=== PATIENT | female | born 2000 | race African-American/Black ===

== ENCOUNTER 2024-02-05 10:05 | Outpatient (AMB) | payer OTHER, SELFPAY ==
--- NOTE | 2024-02-05 10:11 | MHC.OFFVIS ---
Vital Signs 02/05/24 10:14 Height 5 ft 5 in BP 118/8 L Blood Pressure Location Rt brachial Position Sitting Pulse 52 Pulse Source Pulse Oximeter Pulse Oximetry (%) 99 Oxygen Delivery Method Room Air Intake Visit Reasons: ENP-? Seizure disorder Scaler Packer Required: No Accompanied by: Self / Same As Patient Allergies No Known Allergies Allergy (Verified 02/05/24 10:15) Medication List - Last Reconciled 02/05/24 by CRISTI Lilly No Known Home Meds HPI Comments Details: Right-handed 23-yr-old female presents for neurological evaluation of: possible seizure. Pt reports in Jun 2022, she had a usual day, she slept well the night before. She had eaten breakfast lunch and dinner. She felt fine. Then around 10:30pm, she started to take a bong hit of a mixture of tobacco and marijuana (bought from a dispensary and this was her typical nightly dose and product). Then she felt ringing in her ears, lightheaded like she would pass out, then sat down, her vision became blurry, so then she laid down on the couch. Then she started to feel her hands feel stiff and locked, her whole body was shaking, her mouth was twitching and had mild drooling. She was conscious and felt her mentation was ok, was trying to tell her boyfriend that he was ok but could not get the words out. Her boyfriend timed the episode, she was actively shaking just > 4 min. Afterwards, she had a slight headache and felt tired/fatigued. She did not have intraictal tongue biting or loss of urinary/bowel sphincter control. She did not see medical care for this. She has not had a similar episode since. She does have a h/o faintinst episode was in 2012- was attributed to heat exhaustion. Since, she has passed out at least 50 times- in [id number] had syncope at least 2 times per month. She was treated for anemia, and the syncope subsided to about 1-2 times per year. Her last episode was earlier this month. Her syncopal episodes are stereotypic. She is not sure of what triggers them- she can be sitting, standing, laying in bed. Both ears will start to ring a high-pitched sound, then with each blink her vision will blur and turn black, and her hearing becomes muffled, and then she passes out x's maybe a minute. When she comes to, she vomits. Denies post-ictal fatigue/tiredness. Denies intraictal tongue biting or loss of urinary/bowel sphincter control. Now tries to sit down when she starts to hear the ringing in her ears. Pt is unsure of her gestational development- however suspects her mother may have used drugs while with her, as her mom did not know that she was as she had had a tubal ligation. Her mother had seizures, kidney disease, substance use d/o, mood d/o, bipolar, AIDs- at age 49 d/t complications. Pt reports she had normal early development. She was a good student, AP and honors classes. She graduated from [employer] in psychology. Plans to go back to school to become an RN. Her father is alive. Pt has 2 full brothers and sisters and lots of half-siblings on both sides- none have seizures or syncope as far as she knows. Patient endorses: orthostatic lightheadedness, anxiety/depression/bipolar-type II- not well-managed, needs a new therapist. Started Abilify earlier this year but has not taken her meds recently. And patient denies: spacing out episodes, usual bothersome headaches, migraines, dizziness, h/o head injury, h/o neck injury, chest pain, palpitations, clotting d/o's, SOB, diabetes, sleeps ok- more than the average person. 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 Plans to return to school to become a nurse. Now has only been taking marijuana occasionally- and always from a dispensary. She has not had an MRI or EEG or cardiac work-up. [facility] Social History Alcohol intake: current Physical Exam Vital Signs: Last Vital Signs Pulse 52 02/05/24 10:14 BP 118/8 L 02/05/24 10:14 Pulse Ox 99 02/05/24 10:14 Oxygen Delivery Method Room Air 02/05/24 10:14 Const General: cooperative and no acute distress Orientation/consciousness: patient oriented x3 HEENT Head: Yes normocephalic Resp Effort & Inspection: normal respiratory effort and able to speak in complete sentences Neuro General: patient oriented x3, CN's II-XI intact bilaterally and deep tendon reflexes 2+ bilaterally Cranial nerves: Yes Bilaterally intact EOM present Gait exam (Neuro): Normal gait present Motor exam (neuro): 5/5 motor strength present throughout Coordination: [id number] test normal, [id number] test normal and tandem gait normal Psych Appearance: grossly normal Mental Status: mental status grossly normal Speech and movement: Normal speech and movement present Affect: normal affect Attitude: cooperative Thought process: Normal thought process present Thought content: Normal thought content present Insight: Good insight present (Psych) Assessment & Plan Assessment & Plan (1) Convulsive syncope: Comment: Onset similar to her syncopal episodes, though did not fully lose consciousness but did have muscle tightness and shaking x's 4 min and postictal fatigue/headache. Code(s): R55 - Syncope and collapse Category: Medical (2) Syncope: Comment: ? epileptic etiology, ? cardiogenic etiology. Unlikely fully r/t h/o anemia as episodes have persisted since anemia has been corrected. Unlikely orthostatic hypotension, as episodes have occurred while sitting and laying down. Code(s): R55 - Syncope and collapse Category: Medical (3) Bipolar II disorder: Code(s): F31.81 - Bipolar II disorder Category: Medical (4) Anxiety: Code(s): F41.9 - Anxiety disorder, unspecified Category: Medical (5) Depression: Code(s): F32.A - Depression, unspecified Category: Medical Plan Pt advised to undergo Baseline EEG Pt advised to undergo Brain MRI w/wo to assess for secondary intracranial etiologies of convulsive syncope and syncope in setting of possible gestational substance exposure. Will refer to new psychiatry/psychology service. Pt would benefit from cardiac evaluation of syncopal episodes- will defer to PCP. Pt advised to NOT drive or engage in high risk activities, including climbing ladders, solo tub bathing or swimming, or engaging in any high risk activities for at least 6 months following last syncopal episode and syncopal etiology identified. Pt seen in c/w Dr [place]. Orders: Orders EEG electroencephalogram Today R55 - Syncope and collapse MR head/brain wo/w con Today R55 - Syncope and collapse Referrals Psychiatry Referral F31.81 - Bipolar II disorder, F32.A - Depression, unspecified, F41.9 - Anxiety disorder, unspecified Coding Level of Care Code New Pt Level 4 (64772) Diagnoses Convulsive syncope R55 Syncope R55 Bipolar II disorder F31.81 Anxiety F41.9 Depression F32.A
[2024-02-05 10:14] VITALS: BP 118/8; PULSE 52; O2SAT 99
== END 2024-02-05 11:23 | disposition home or self-care (01) ==
PROVIDERS: PCP Family Medicine; Visit Provider Nurse Practitioner Family
DX: R55 Syncope and collapse (principal); F31.81 Bipolar II disorder; F41.9 Anxiety disorder, unspecified; F32.A Depression, unspecified
CPT/HCPCS: 99204

== ENCOUNTER → 2024-02-05 10:05 | Outpatient (BNVA) | payer OTHER, SELFPAY | PROVIDERS: PCP Family Medicine; Visit Provider Nurse Practitioner Family | DX: F31.81 Bipolar II disorder (principal); F41.9 Anxiety disorder, unspecified; R55 Syncope and collapse | CPT/HCPCS: 99202 ==

== ENCOUNTER 2024-02-29 15:58 | Outpatient (REF) | payer OTHER, SELFPAY ==
--- NOTE | ~2024-02-29 | MR_ITS ---
EXAMINATION: MR BRAIN WITHOUT AND WITH CONTRAST CLINICAL INFORMATION: Syncope. Collapse. COMPARISON: None available. TECHNIQUE: MRI of the brain was obtained using routine sequences without and following the administration of 5 mL of Gadavist intravenous contrast. FINDINGS: No focal restricted diffusion is demonstrated to suggest acute or subacute cerebral ischemia. No evidence of acute or chronic hemorrhagic products on heme-sensitive imaging. Normal parenchymal signal characteristics. The ventricles are normal in morphology and size. No abnormal mass effect. No midline shift. The hippocampi are symmetric in size, contour, and signal intensity. The temporal horns appear symmetric. Normal appearance of the pituitary gland. The cerebellar tonsils are mildly low lying, positioned 0.4 cm below the foramen magnum. The CSF space of the foramen magnum is maintained. Normal arterial and venous vascular flow voids are present. No abnormal contrast enhancement. Normal, homogeneous marrow signal. Mild mucosal thickening of the paranasal sinuses. No signal abnormalities within the mastoids. MR/MR head/brain wo/w con IMPRESSION: 1. No acute intracranial abnormalities. No abnormal intracranial enhancement. 2. Mild cerebellar tonsillar ectopia. 3. No additional MRI abnormalities to explain the patient's symptoms. Electronically signed by: David Landrum DO 04/21/2024 04:52 AM EST
[2024-02-29] MEDS: gadobutroL 7.5 ML VIAL IVPUSH (17:12)
== END 2024-02-29 15:59 | disposition home or self-care (01) ==
LOC: HO.MRI 15:58
PROVIDERS: PCP Family Medicine; Visit Provider Nurse Practitioner Family
DX: R55 Syncope and collapse (principal)
CPT/HCPCS: 70553; A9585

== ENCOUNTER 2024-03-11 08:00 | Outpatient (REF) | payer OTHER, SELFPAY ==
--- NOTE | 2024-03-11 08:03 | EEG_ITS ---
This is a 16-channel EEG with an EKG lead. The patient is reported awake during the tracing. Background EEG rhythm is 16 to 20 hertz, 5 to 20 microvolt posteriorly, and lower amplitude fast anteriorly. Photic stimulation does not produce any significant driving. Hyperventilation is unremarkable. No definite sharp wave spikes or paroxysmal tendencies noted. Frequent PVCs were noted. Photic stimulation and hyperventilation were unremarkable. IMPRESSION: No EEG abnormality was noted, but her cardiac rhythm for her age seemed abnormal and further investigation is needed. MD KILEY Acosta/TERRY / [id number]
--- NOTE | 2024-03-11 09:19 | ECG_ITS ---
Test Reason : syncope Blood Pressure : / mmHG Vent. Rate : 061 BPM Atrial Rate : 061 BPM P-R Int : 176 ms QRS Dur : 080 ms QT Int : 422 ms P-R-T Axes : 068 088 063 degrees QTc Int : 424 ms Sinus rhythm with occasional Premature ventricular complexes Otherwise normal ECG No previous ECGs available Referred By: Mima Alston Electronically Signed By:
== END 2024-03-11 08:01 | disposition home or self-care (01) ==
LOC: HO.NEURO 08:00
PROVIDERS: Visit Provider Nurse Practitioner Family
DX: R55 Syncope and collapse (principal)
CPT/HCPCS: 93005; 95816

== ENCOUNTER 2024-03-16 09:06 | Outpatient (REF) | payer OTHER, SELFPAY ==
[2024-03-16 12:37] LABS: UPreg QC Valid YES; Urine Pregnancy NEGATIVE (NEGATIVE)
[2024-03-16 12:48] LABS: Alanine Aminotransferase 16 U/L (0-31); Albumin Level 4.3 g/dL (3.5-5.0); Alkaline Phosphatase 58 U/L (39-117); Anion Gap 14 (12-20); Aspartate Amino Transferase 22 U/L (5-31); Bilirubin Total 0.6 mg/dL (0.0-1.0); Blood Urea Nitrogen 13 mg/dL (9-16); Calcium 9.5 mg/dL (8.4-10.2); Carbon Dioxide 24 mmol/L (22-29); Chloride 105 mmol/L (96-108); Cholesterol 160 mg/dL (<200); Estimated Glomerular Filt Rate > 60; Glucose Fasting 75 mg/dL (60-99); HDL Cholesterol 73 mg/dL (>40); LDL Cholesterol Calculated 74 mg/dL (<100); Potassium 3.9 mmol/L (3.3-5.1); Sodium 139 mmol/L (135-145); Total Protein 7.6 g/dL (6.5-8.0); Triglycerides 68 mg/dL (<150)
[2024-03-16 13:03] LABS: TSH reflex Free T4 0.51 uIU/mL (0.32-4.0)
== END 2024-03-16 09:07 | disposition home or self-care (01) ==
LOC: HO.LAB 09:06
PROVIDERS: PCP Family Medicine; Visit Provider Clinical Nurse Specialist Psychiatric/Mental Health
DX: F32.A Depression, unspecified (principal); R55 Syncope and collapse; F41.9 Anxiety disorder, unspecified; F31.81 Bipolar II disorder; Z79.899 Other long term (current) drug therapy
CPT/HCPCS: 36415; 80053; 80061; 81025; 84443; 90792

== ENCOUNTER 2024-03-16 09:06 | Outpatient (AMB) | payer OTHER, SELFPAY ==
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
== END 2024-03-16 10:12 | disposition home or self-care (01) ==
LOC: HO.HOP 09:06
PROVIDERS: PCP Family Medicine; Visit Provider Clinical Nurse Specialist Psychiatric/Mental Health
DX: F31.81 Bipolar II disorder (principal)
CPT/HCPCS: 90792

== ENCOUNTER 2024-05-21 16:25 | Outpatient (AMB) | payer OTHER, SELFPAY ==
--- NOTE | 2024-05-21 16:41 | A.OFFPSYCH_ITS ---
Intake Intake Visit Reasons: depression Resource Paraprofessional Required: No Allergies No Known Allergies Allergy (Verified 02/05/24 10:15) Medication List - Last Reconciled 05/21/24 by Amelia Milotn APRN fluoxetine (Prozac) 10 mg PO DAILY hydroxyzine HCl 10 mg PO BID PRN HPI- Psychiatric Chief Complaint: depression HPI Narrative: Pts PHQ9 did not match description of pts symptoms and functioning; she is struggling with labile mood; easily tearful; recent admission to respite due to urges to hurts self; she has called crisis 2 times in interim. She was started on topomax at respite and they stopped her abilify but left her on prozac 10mg and hydroxyzine. she thiks the abilify miht have been causing palpitations; pt started using THC again and her mood is more labile since. she denies current SI or Hi Past Psychiatric History: no IPLOC, no PHPP, one ED 24 hold when in college. Has outpatient therapy off and on since age 10 Subjective Subjective Subjective Medication Compliance: Yes Side effects from medications: No Review of Systems Medical Review of Systems: unchanged Mental Status Exam Mental Status Exam Patient Appearance: Well Grooomed Patient Orientation: Person, Place, Time and Situation Level of Consciousness: Awake, Appropriate and Alert Patient Behavior: Appropriate and Cooperative Mood Description: Labile Affect Description: Labile Patient Cognition Impaired: No Ability to Follow Directions: Good Speech Pattern: Clear and Appropriate Memory Description: Intact Hallucinations: None Delusions: Not Present Thought Process: Intact and Distracted Thought Content: positive for Loose Associations Judgement: Fair Assessment and Plan Assessment & Plan (1) Bipolar II disorder: Status: Acute Code(s): F31.81 - Bipolar II disorder (2) Anxiety: Status: Acute Code(s): F41.9 - Anxiety disorder, unspecified Plan continue prozac 10 mg daily increase topamax 25 mg TID urged to make OBGYN appt for control method-currently sexually active and not using birthcontrol; advised against this due to medications follow up in 2-4 weeks Medications: New topiramate (Topamax) 25 mg PO TID 90 tabs 1RF Counseling and coordination of Care Pt. Self Management counseling: Maintenance-social rhythm, Med illness tx ad herence, Mod caffeine/ETOH intake, Sleep hygiene, Behavior activation, General coping skills and Problem solving Medication management counseling: Effectiveness, Side effects, Dosing range, Duration, Drug interaction, Adherence and Other (risks of while on meds) Details-Med Mgmt counseling: advised to talk with PCP and BGYN re: BC method Diagnosis and Prognosis Counseling: Accuracy of diagnosis, Prognosis over time, Impact of diagnosis on life functions, Impact of family relationship, Pro blematic behaviors secondary to diagnosis and Adequacy of current interventions Details: I spent 45 minutes reviewing the record, seeing the patient and documenting in the medical record. Counseling provided to the patient/caregiver as outlined below. Addressed patient/caregiver concerns regarding current medication regime including effective adherence. Addressed patient/caregiver concerns regarding diagnosis and prognosis including accuracy of diagnosis, prognosis over time, impact of diagnosis. Addressed patient/caregiver concerns regarding impact of recent stressors. 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 pt older brother very violent at times; pt father worked 4 jobs and absent frequently; Substance History: etoh 2 x month; THC daily . no other drugs Trauma History: childhood. DCF involvement, early loss of mother Coding Level of Care Code Est Pt Level 5 (70106) Diagnoses Bipolar II disorder F31.81 Anxiety F41.9
== END 2024-05-21 17:11 | disposition home or self-care (01) ==
LOC: HO.HOP 16:25
PROVIDERS: PCP Family Medicine; Visit Provider Clinical Nurse Specialist Psychiatric/Mental Health
DX: F31.81 Bipolar II disorder (principal); F41.9 Anxiety disorder, unspecified
CPT/HCPCS: 99215

== ENCOUNTER → 2024-05-21 16:25 | Outpatient (BNVA) | payer OTHER, SELFPAY | PROVIDERS: PCP Family Medicine; Visit Provider Clinical Nurse Specialist Psychiatric/Mental Health | DX: F31.81 Bipolar II disorder (principal); F41.9 Anxiety disorder, unspecified | CPT/HCPCS: 99212 ==

== ENCOUNTER 2024-06-03 17:03 | Outpatient (AMB) | payer OTHER, SELFPAY ==
--- NOTE | 2024-06-03 17:07 | A.OFFPSYCH_ITS ---
Intake Intake Visit Reasons: depression Ice Handler Required: No Allergies No Known Allergies Allergy (Verified 02/05/24 10:15) Medication List - Last Reconciled 06/03/24 by Amelia Milton APRN fluoxetine (Prozac) 10 mg PO DAILY hydroxyzine HCl 10 mg PO BID PRN topiramate (Topamax) 25 mg PO TID HPI- Psychiatric Chief Complaint: depression HPI Narrative: pt reports feeling calmer overall; she reports a few episodes of irritability and verabl impulsivity; no self harm ideation; no SI ro he reports intermittent tingling in her hands since increasing the topomax but it has decreased. she is sleeping a little better; she feels tired during the day. She has appt with PCP nexy week and will have blood work done Past Psychiatric History: no IPLOC, no PHPP, one ED 24 hold when in college. Has outpatient therapy off and on since age 10 Subjective Subjective Subjective Medication Compliance: Yes Side effects from medications: No Review of Systems Medical Review of Systems: unchanged Mental Status Exam Mental Status Exam Patient Appearance: Well Grooomed and Appropriate Patient Orientation: Person, Place, Time and Situation Level of Consciousness: Awake, Appropriate and Alert Patient Behavior: Appropriate and Cooperative Mood Description: Cheerful and Anxious Affect Description: Constricted, Cheerful and Anxious Patient Cognition Impaired: No Ability to Follow Directions: Good Speech Pattern: Clear and Rapid Memory Description: Intact Hallucinations: None Delusions: Not Present Thought Process: Distracted Thought Content: positive for Racing, positive for Goal Oriented and positive for Loose Associations Judgement: Fair Assessment and Plan Assessment & Plan (1) Bipolar II disorder: Status: Acute Code(s): F31.81 - Bipolar II disorder (2) Anxiety: Status: Acute Code(s): F41.9 - Anxiety disorder, unspecified Plan stop prozac continue topomax 25 mg tid and hydroxyzine 10 mg BID has cardiology appt fro [facility] labs : recheck TSH, cbc, comp at next appt with pcpp Medications: Refilled hydroxyzine HCl 10 mg PO BID PRN 30 tabs 1RF anxiety, sleep Discontinued fluoxetine (Prozac) Discontinued Reason: Doctor's Order 10 mg PO DAILY 30 caps 1RF Counseling and coordination of Care Pt. Self Management counseling: Mod caffeine/ETOH intake, Nutrition education and improvement, Sleep hygiene and General coping skills Medication management counseling: Effectiveness, Side effects, Dosing range, Duration, Drug interaction and Adherence Diagnosis and Prognosis Counseling: Accuracy of diagnosis, Prognosis over time, Impact of diagnosis on life functions, Impact of family relationship, Problematic behaviors secondary to diagnosis and Adequacy of current interventions Details: I spent 40 minutes reviewing the record, seeing the patient and documenting in the medical record. Counseling provided to the patient/caregiver as outlined below. Addressed patient/caregiver concerns regarding current medication regime including effective adherence. Addressed patient/caregiver concerns regarding diagnosis and prognosis including accuracy of diagnosis, prognosis over time, impact of diagnosis. Addressed patient/caregiver concerns regarding impact of recent stressors. 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 pt older brother very violent at times; pt father worked 4 jobs and absent frequently; Substance History: etoh 2 x month; THC daily . no other drugs Trauma History: childhood. DCF involvement, early loss of mother Coding Level of Care Code Est Pt Level 4 (24061) Diagnoses Bipolar II disorder F31.81 Anxiety F41.9
== END 2024-06-03 17:25 | disposition home or self-care (01) ==
LOC: HO.HOP 17:03
PROVIDERS: PCP Family Medicine; Visit Provider Clinical Nurse Specialist Psychiatric/Mental Health
DX: F31.81 Bipolar II disorder (principal); F41.9 Anxiety disorder, unspecified
CPT/HCPCS: 99214

== ENCOUNTER → 2024-06-03 17:03 | Outpatient (BNVA) | payer OTHER, SELFPAY | PROVIDERS: PCP Family Medicine; Visit Provider Clinical Nurse Specialist Psychiatric/Mental Health | DX: F31.81 Bipolar II disorder (principal); F41.9 Anxiety disorder, unspecified; Z71.89 Other specified counseling | CPT/HCPCS: 99212 ==

== ENCOUNTER 2024-07-02 16:45 | Outpatient (AMB) | payer OTHER, SELFPAY ==
--- NOTE | 2024-07-02 16:50 | A.OFFPSYCH_ITS ---
Intake Intake Visit Reasons: depression Sales Development Manager Required: No Allergies No Known Allergies Allergy (Verified 02/05/24 10:15) Medication List - Last Reconciled 07/02/24 by Amelia Milton APRN hydroxyzine HCl 10 mg PO BID PRN topiramate (Topamax) 25 mg PO TID HPI- Psychiatric Chief Complaint: depression HPI Narrative: pt anxious and hypomanic; spending increased money; cheating on BF when she doesn't really want to ; using THC again; working with her therpaist to address behaviors; pt guilty and anxious. taking meds cocnsistently; no SI or HI; sleeps 6-7 hous when taking topiramate. pt cardiology appt in August Past Psychiatric History: no IPLOC, no PHPP, one ED 24 hold when in college. Has outpatient therapy off and on since age 10 Subjective Subjective Subjective Medication Compliance: Yes Side effects from medications: No Review of Systems Medical Review of Systems: unchanged Mental Status Exam Mental Status Exam Patient Appearance: Well Grooomed and Appropriate Patient Orientation: Person, Place, Time and Situation Level of Consciousness: Awake, Appropriate and Alert Patient Behavior: Appropriate Mood Description: Anxious Affect Description: Anxious Patient Cognition Impaired: No Ability to Follow Directions: Good Speech Pattern: Clear and Excessive Memory Description: Intact Hallucinations: None Delusions: Not Present Thought Process: Racing and Distracted Thought Content: positive for Racing Judgement: Fair Assessment and Plan Assessment & Plan (1) Bipolar II disorder: Status: Acute Code(s): F31.81 - Bipolar II disorder Plan continue topomax and hydroxyzine cur back on thc use continues therapy start risperdal 0.25mg BID follow up with cardiology stay hydrated follow up w ak in 4 weeks Medications: New risperidone 0.25 mg (1/2 x 0.5 mg) PO BID 30 tabs 0RF Refilled topiramate (Topamax) 25 mg PO TID 90 tabs 1RF hydroxyzine HCl 10 mg PO BID PRN 30 tabs 1RF anxiety, sleep Counseling and coordination of Care Pt. Self Management counseling: Maintenance-social rhythm, Mindfulness, Mod caff eine/ETOH intake, Nutrition education and improvement, Sleep hygiene, Substance abuse tx adhere and General coping skills Medication management counseling: Effectiveness, Side effects, Dosing range, Duration, Drug interaction and Adherence Diagnosis and Prognosis Counseling: Accuracy of diagnosis, Prognosis over time, Impact of diagnosis on life functions, Impact of family relationship, Problematic behaviors secondary to diagnosis and Adequacy of current interventions Details: I spent 36 minutes reviewing the record, seeing the patient and documenting in the medical record. Counseling provided to the patient/caregiver as outlined below. Addressed patient/caregiver concerns regarding current medication regime including effective adherence. Addressed patient/caregiver concerns regarding diagnosis and prognosis including accuracy of diagnosis, prognosis over time, impact of diagnosis. Addressed patient/caregiver concerns regarding impact of recent stressors. 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 pt older br other very violent at times; pt father worked 4 jobs and absent frequently; Substance History: etoh 2 x month; THC daily . no other drugs Trauma History: childhood. DCF involvement, early loss of mother Coding Level of Care Code Est Pt Level 4 (35925) Diagnoses Bipolar II disorder F31.81
== END 2024-07-02 17:00 | disposition home or self-care (01) ==
LOC: HO.HOP 16:45
PROVIDERS: PCP Family Medicine; Visit Provider Clinical Nurse Specialist Psychiatric/Mental Health
DX: F31.81 Bipolar II disorder (principal)
CPT/HCPCS: 99214

== ENCOUNTER → 2024-07-02 16:45 | Outpatient (BNVA) | payer OTHER, SELFPAY | PROVIDERS: PCP Family Medicine; Visit Provider Clinical Nurse Specialist Psychiatric/Mental Health | DX: F31.81 Bipolar II disorder (principal) | CPT/HCPCS: 99212 ==

== ENCOUNTER 2024-08-02 16:36 | Outpatient (AMB) | payer OTHER, SELFPAY ==
--- NOTE | 2024-08-02 16:40 | MHC.OFFVISPS ---
Intake Intake Visit Reasons: f/u consultation Network Communications Engineer Required: No Allergies No Known Allergies Allergy (Verified 02/05/24 10:15) Medication List - Last Reconciled 08/02/24 by Amelia Milton APRN hydroxyzine HCl 10 mg PO BID PRN risperidone 0.25 mg (1/2 x 0.5 mg) PO BID topiramate (Topamax) 25 mg PO TID HPI- Psychiatric Chief Complaint: f/u consultation HPI Narrative: pt reports feeling calmer overall; she is less impulsive. she is sleeping better; reports she is more conistent with medications; she is meeting with therpaist 2 x a week right now as she recently ended a 6.5 yr relationship; she is still living with him and they share a dog so she feels there is still a lot to navigate. pHQ9=8 and GAD7=4. she denies SI or HI, Past Psychiatric History: no IPLOC, no PHPP, one ED 24 hold when in college. Has outpatient therapy off and on since age 10 Subjective Subjective Subjective Medication Compliance: Yes Side effects from medications: No Review of Systems Medical Review of Systems: unchanged Mental Status Exam Mental Status Exam Patient Appearance: Well Grooomed and Appropriate Patient Orientation: Person, Place, Time and Situation Level of Consciousness: Awake, Appropriate and Alert Patient Behavior: Appropriate Mood Description: Sad Affect Description: Sad Patient Cognition Impaired: No Ability to Follow Directions: Good Speech Pattern: Clear and Appropriate Memory Description: Intact Hallucinations: None Delusions: Not Present Thought Process: Intact and Goal Oriented Thought Content: positive for Intact and positive for Goal Oriented Judgement: Fair Assessment and Plan Assessment & Plan (1) Bipolar II disorder: Status: Acute Code(s): F31.81 - Bipolar II disorder (2) Anxiety: Status: Acute Code(s): F41.9 - Anxiety disorder, unspecified Plan continue risperdal continue hydroxyzine prn continue topomax 25mg tid follow up in 4 weeks Medications: Refilled hydroxyzine HCl 10 mg PO BID PRN 120 tabs 1RF anxiety, sleep risperidone 0.25 mg (1/2 x 0.5 mg) PO BID 90 tabs 1RF Counseling and coordination of Care Pt. Self Management counseling: Maintenance-social rhythm, Nutrition education and improvement, Behavior activation, General coping skills and Problem solving Medication management counseling: Effectiveness, Side effects, Dosing range, Duration, Drug interaction and Adherence Diagnosis and Prognosis Counseling: Accuracy of diagnosis, Prognosis over time, Impact of diagnosis on life functions, Impact of family relationship, Problematic behaviors secondary to diagnosis and Adequacy of current interventions Details: I spent 30 minutes reviewing the record, seeing the patient and documenting in the medical record. Counseling provided to the patient/caregiver as outlined below. Addressed patient/caregiver concerns regarding current medication regime including effective adherence. Addressed patient/caregiver concerns regarding diagnosis and prognosis including accuracy of diagnosis, prognosis over time, impact of diagnosis. Addressed patient/caregiver concerns regarding impact of recent stressors. 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 pt older brother very violent at times; pt father worked 4 jobs and absent frequently; Substance History: etoh 2 x month; THC daily . no other drugs Trauma History: childhood. DCF involvement, early loss of mother Coding Level of Care Code Est Pt Level 4 (64641) Diagnoses Bipolar II disorder F31.81 Anxiety F41.9
== END 2024-08-02 17:02 | disposition home or self-care (01) ==
LOC: HO.HOP 16:36
PROVIDERS: PCP Family Medicine; Visit Provider Clinical Nurse Specialist Psychiatric/Mental Health
DX: F31.81 Bipolar II disorder (principal); F41.9 Anxiety disorder, unspecified
CPT/HCPCS: 99214

== ENCOUNTER → 2024-08-02 16:36 | Outpatient (BNVA) | payer OTHER, SELFPAY | PROVIDERS: PCP Family Medicine; Visit Provider Clinical Nurse Specialist Psychiatric/Mental Health | DX: F31.81 Bipolar II disorder (principal); F41.9 Anxiety disorder, unspecified; Z71.89 Other specified counseling | CPT/HCPCS: 99212 ==

== ENCOUNTER 2024-08-17 08:59 | Outpatient (AMB) | payer OTHER, SELFPAY ==
[2024-08-17 09:02] VITALS: BP 96/52; PULSE 71; BMI 20.9
--- NOTE | 2024-08-17 09:02 | MHC.OFFVIS ---
Vital Signs 08/17/24 09:02 Height 5 ft 5 in Weight 125 lb 10.616 oz BMI 20.9 BP 96/52 L Blood Pressure Location Lt brachial Position Sitting Pulse 71 Pulse Source Pulse Oximeter Intake Visit Reasons: RIB BENDER/Mima Alston/syncope/ trigeminal PVC;s Shrimp Boat Captain Required: No Accompanied by: Self / Same As Patient Allergies No Known Allergies Allergy (Verified 02/05/24 10:15) Medication List - Last Reconciled 08/17/24 by Jg Geronimo MD hydroxyzine HCl 10 mg PO BID PRN risperidone 0.25 mg (1/2 x 0.5 mg) PO BID topiramate (Topamax) 25 mg PO TID HPI Comments Details: Pamela is here for consultation regarding syncopal episodes. She states that since around 2012 or so, she has had episodes of passing out. This can happen every few months. In 2021, she was smoking marijuana/cigarettes and in that setting, had passed out. She states that these episodes can happen any time in any body position. She can feel sensations of ringing in the ears, double vision and then everything goes black. She has been referred for cardiac evaluation of syncope. Otherwise, no exertional intolerance and she does not have any limitations of physical activity. No previously diagnosed cardiovascular issues. No family history of any cardiomyopathy or sudden cardiac . In a prior EKG, PVCs have been noted. [facility] Family History (Updated 08/17/24 @ 09:05 by Carmelina Woodruff CMA) Maternal Grandmother DM2 (diabetes mellitus, type 2) Mother AIDS Father AIDS Social History (Updated 08/17/24 @ 09:06 by Carmelina Woodruff CMA) Alcohol intake: never Patient Tobacco Use Status: Never used Tobacco Review of Systems Const Denies chills, Denies fatigue, Denies fever(s), Denies weight gain and Denies weight loss Eyes Denies loss of vision ENT Denies dizziness Card Denies chest pain, Denies leg edema, Denies lightheadedness, Denies palpitations, Denies dyspnea on exertion, Denies orthopnea and Denies other Resp Denies cough, Denies dyspnea on exertion and Denies wheezing GI Denies hematochezia and Denies change in stool character Denies urinary frequency and Denies dysuria Musc Denies abnormal gait, Denies muscle weakness, Denies numbness, Denies radiating pain into limb and Denies tingling Skin/Breast Denies nail changes and Denies rash Neuro Denies Abnormal speech present, Denies abnormal gait, Denies dizziness, Denies loss of vision, Denies memory loss, Denies numbness and Denies tingling Psych Denies depression and Denies memory loss Endo Denies fatigue and Denies palpitations Zia/Lymph Denies easy bruising Aller/Immun Denies wheezing Physical Exam Vital Signs: Last Vital Signs Pulse 71 08/17/24 09:02 BP 96/52 L 08/17/24 09:02 BMI result Body Mass Index 20.9 Const General: comfortable and no acute distress Orientation/consciousness: patient oriented x3 HEENT Other: Unremarkable Head: Yes normal to inspection Neck Neck: Yes normal visual inspection Chest Chest palpation & inspection: normal inspection of the chest Resp Auscultation: clear to auscultation bilaterally Cardio Palpation: normal PMI Heart sounds: S1 normal heart sound present, S2 normal heart sound present, no gallops, no murmurs and no rubs GI Palpation (GI): Soft to palpation Back/Spine/Pelvis Other: unremarkable Skin General skin exam: no rashes or lesions noted Neuro General: patient oriented x3 Speech: No Abnormal speech present Extrem General: Yes normal to inspection Psych Mental Status: mental status grossly normal Assessment & Plan Assessment & Plan (1) Syncope: Code(s): R55 - Syncope and collapse Category: Medical (2) PVCs (premature ventricular contractions): Code(s): I49.3 - Ventricular premature depolarization Category: Medical Plan In the prior EKG from February, underlying rhythm is sinus at 63/Min. PVCs noted. Normal CT and corrected QT. In earlier EKGs 2016, sinus rhythm without any PVCs. Overall, syncopal episodes going back more than 10 years, uncertain etiology. PVCs on EKG. Doubt if there is any correlation between the PVCs in the syncopal episodes. This should not be causing syncope unless she has truly sustained VT which is less likely. We will start with an echocardiogram for any cardiac dysfunction. We will start with a 14 day monitor. Further plan based on the findings. May need longer-term monitoring. To be decided. Orders: Orders CA echo transthoracic complete Today I49.3 - Ventricular premature depolarization ECG 14 day holter monitor Today I49.3 - Ventricular premature depolarization Coding Level of Care Code New Pt Level 4 (11166) Diagnoses Syncope R55 PVCs (premature ventricular contractions) I49.3
== END 2024-08-17 09:23 | disposition home or self-care (01) ==
LOC: HO.HCS 08:59
PROVIDERS: PCP Family Medicine; Visit Provider Internal Medicine
DX: R55 Syncope and collapse (principal); I49.3 Ventricular premature depolarization
CPT/HCPCS: 99204

== ENCOUNTER → 2024-08-17 08:59 | Outpatient (BNVA) | payer OTHER, SELFPAY | PROVIDERS: PCP Family Medicine; Visit Provider Internal Medicine | DX: R55 Syncope and collapse (principal); F31.81 Bipolar II disorder; F41.9 Anxiety disorder, unspecified; F32.A Depression, unspecified; I49.3 Ventricular premature depolarization | CPT/HCPCS: 99202; 99212 ==

== ENCOUNTER 2024-08-17 13:12 | Outpatient (AMB) | payer OTHER, SELFPAY ==
--- NOTE | 2024-08-17 13:17 | MHC.OFFVIS ---
Vital Signs 08/17/24 13:18 Height 5 ft 5 in Weight 124 lb BMI 20.6 BP 110/72 Blood Pressure Location Rt brachial Position Sitting Intake Visit Reasons: 6mo F/U Intake Note: Patient following up MRI 02/29/24,EEG 03/11/24 and psych eval 04/04-08/02/24 Allergies No Known Allergies Allergy (Verified 08/17/24 13:19) Medication List - Last Reconciled 08/17/24 by Mima Alston, FIREWALL SECURITY ENGINEER hydroxyzine HCl 10 mg PO BID PRN risperidone 0.25 mg (1/2 x 0.5 mg) PO BID topiramate (Topamax) 25 mg PO TID HPI Comments Details: History of Present Illness The patient is a 24-year-old female presenting for follow-up of convulsive syncope. Initial EEG showed no epileptic activity but indicated frequent PVCs. 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 No episodes of syncope since the last visit. Experienced a recent sensation indicating a potential syncopal episode but did not faint. No headaches or dizziness reported, denying significant neurological symptoms. Recent medication adjustments were initiated by psychiatric follow-up. Had initial cardiac evaluation today, and has been advised to undergo 14-day heart monitor and echocardiogram. 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 Review of Systems - Neurologic: Denies headache, dizziness. - Cardiac: Reports PVCs, denies chest pain. Results - Tests and Diagnostics: - EEG: No epileptic activity observed; frequent PVCs noted. - MRI of the Brain: Mild cerebellar tonsillar ectopia observed, otherwise unremarkable. 02/05/24 Initial HPI: Right-handed 23-yr-old female presents for neurological evaluation of: possible seizure. Pt reports in Jun 2022, she had a usual day, she slept well the night before. She had eaten breakfast lunch and dinner. She felt fine. Then around 10:30pm, she started to take a bong hit of a mixture of tobacco and marijuana (bought from a dispensary and this was her typical nightly dose and product). Then she felt ringing in her ears, lightheaded like she would pass out, then sat down, her vision became blurry, so then she laid down on the couch. Then she started to feel her hands feel stiff and locked, her whole body was shaking, her mouth was twitching and had mild drooling. She was conscious and felt her mentation was ok, was trying to tell her boyfriend that he was ok but could not get the words out. Her boyfriend timed the episode, she was actively shaking just > 4 min. Afterwards, she had a slight headache and felt tired/fatigued. She did not have intraictal tongue biting or loss of urinary/bowel sphincter control. She did not see medical care for this. She has not had a similar episode since. She does have a h/o faintinst episode was in 2012- was attributed to heat exhaustion. Since, she has passed out at least 50 times- in [id number] had syncope at least 2 times per month. She was treated for anemia, and the syncope subsided to about 1-2 times per year. Her last episode was earlier this month. Her syncopal episodes are stereotypic. She is not sure of what triggers them- she can be sitting, standing, laying in bed. Both ears will start to ring a high-pitched sound, then with each blink her vision will blur and turn black, and her hearing becomes muffled, and then she passes out x's maybe a minute. When she comes to, she vomits. Denies post-ictal fatigue/tiredness. Denies intraictal tongue biting or loss of urinary/bowel sphincter control. Now tries to sit down when she starts to hear the ringing in her ears. Pt is unsure of her gestational development- however suspects her mother may have used drugs while with her, as her mom did not know that she was as she had had a tubal ligation. Her mother had seizures, kidney disease, substance use d/o, mood d/o, bipolar, AIDs- at age 49 d/t complications. Pt reports she had normal early development. She was a good student, AP and honors classes. She graduated from [employer] and [employer] in psychology. Plans to go back to school to become an RN. Her father is alive. Pt has 2 full brothers and sisters and lots of half-siblings on both sides- none have seizures or syncope as far as she knows. Patient endorses: orthostatic lightheadedness, anxiety/depression/bipolar-type II- not well-managed, needs a new therapist. Started Abilify earlier this year but has not taken her meds recently. And patient denies: spacing out episodes, usual bothersome headaches, migraines, dizziness, h/o head injury, h/o neck injury, chest pain, palpitations, clotting d/o's, SOB, diabetes, sleeps ok- more than the average person. 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 Plans to return to school to become a nurse. Now has only been taking marijuana occasionally- and always from a dispensary. She has not had an MRI or EEG or cardiac work-up. [facility] Family History (Updated 08/17/24 @ 09:05 by Carmelina Woodruff CMA) Maternal Grandmother DM2 (diabetes mellitus, type 2) Mother AIDS Father AIDS Social History Alcohol intake: never Patient Tobacco Use Status: Never used Tobacco Physical Exam Vital Signs: Last Vital Signs BP 110/72 08/17/24 13:18 BMI result Body Mass Index 20.6 Const General: cooperative and no acute distress Orientation/consciousness: patient oriented x3 HEENT Head: Yes normocephalic Resp Effort & Inspection: normal respiratory effort and able to speak in complete sentences Neuro General: patient oriented x3 and CN's II-XI intact bilaterally Gait exam (Neuro): Normal gait present Psych Appearance: grossly normal Mental Status: mental status grossly normal Speech and movement: Normal speech and movement present Affect: normal affect Attitude: cooperative Results Reviewed Results Reviewed: 02/29/2024, MR/MR head/brain wo/w con IMPRESSION: 1. No acute intracranial abnormalities. No abnormal intracranial enhancement. 2. Mild cerebellar tonsillar ectopia. 3. No additional MRI abnormalities to explain the patient's symptoms. 03/11/2024, baseline EEG: This is a 16-channel EEG with an EKG lead. The patient is reported awake during the tracing. Background EEG rhythm is 16 to 20 hertz, 5 to 20 microvolt posteriorly, and lower amplitude fast anteriorly. Photic stimulation does not produce any significant driving. Hyperventilation is unremarkable. No definite sharp wave spikes or paroxysmal tendencies noted. Frequent PVCs were noted. Photic stimulation and hyperventilation were unremarkable. IMPRESSION: No EEG abnormality was noted, but her cardiac rhythm for her age seemed abnormal and further investigation is needed. Assessment & Plan Assessment & Plan (1) Convulsive syncope: Comment: Onset similar to her syncopal episodes, though did not fully lose consciousness but did have muscle tightness and shaking x's 4 min and postictal fatigue/headache. Code(s): R55 - Syncope and collapse Category: Medical (2) Syncope: Code(s): R55 - Syncope and collapse Category: Medical (3) Bipolar II disorder: Code(s): F31.81 - Bipolar II disorder Category: Medical (4) Anxiety: Code(s): F41.9 - Anxiety disorder, unspecified Category: Medical (5) Depression: Code(s): F32.A - Depression, unspecified Category: Medical Plan Discussion Notes During the visit, I reviewed the findings from the patient?s recent EEG and MRI. While the EEG ruled out epileptic activity, the frequent premature ventricular contractions brought cardiac evaluation to the forefront. We discussed the implications of the mild cerebellar tonsillar ectopia observed on MRI, clarifying that it is generally asymptomatic and likely an incidental finding. I emphasized the importance of ongoing cardiac evaluation in light of the detected PVCs. I confirmed the 14-day heart monitor order and upcoming echocardiogram, processed per the patient's community health program representative. We discussed the potential orthostatic hypotension effect of psychiatric medications on syncopal episodes. The patient shared significant lifestyle changes, highlighting improved outcomes since switching to daytime work hours. I stressed the importance of longitudinal monitoring of her cardiac status and suggested a follow-up within six months barring any acute concerns, ensuring the patient continues to have adequate psychiatric support. We acknowledged significant improvement in her psychiatric care and daily routine management; however, further cardiovascular investigation is rodriguez. Plan Cardiology follow-up as scheduled with evaluation of cardiac status with a 14-day heart monitor and follow-up echocardiogram. The EEG shows no epileptic basis; frequent PVCs noted. Continue psychiatric oversight for bipolar disorder, with medication reviews to prevent hypotensive effects. MRI finding of mild cerebellar tonsillar ectopia is incidental and asymptomatic. Improved condition observed with a shift from night to day work. Patient was informed and verbally consented to the use of an ambient scribefor clinic note documentation during this visit. Patient Instructions - Follow-up with cardiology and PCP as scheduled - Await scheduling call for echocardiogram and 14 day heart monitor per Cardiology - Continue current psychiatric medications and follow up with the psychiatrist. - Avoid rapid position changes to minimize orthostatic risk. - Report any new symptoms or episodes immediately. - Maintain daytime work schedule for improved sleep and health stability. - Pt advised to NOT drive or engage in high risk activities, including climbing ladders, solo tub bathing or swimming, or engaging in any high risk activities for at least 6 months following last syncopal episode. - Follow-up here in 6 months or sooner as needed Coding Level of Care Code Est Pt Level 4 (24493) Diagnoses Convulsive syncope R55 Syncope R55 Bipolar II disorder F31.81 Anxiety F41.9 Depression F32.A
[2024-08-17 13:18] VITALS: BP 110/72; BMI 20.6
== END 2024-08-17 13:44 | disposition home or self-care (01) ==
LOC: HO.HSMS 13:13
PROVIDERS: PCP Family Medicine; Visit Provider Nurse Practitioner Family
DX: R55 Syncope and collapse (principal); F31.81 Bipolar II disorder; F41.9 Anxiety disorder, unspecified
CPT/HCPCS: 99214

== ENCOUNTER 2024-08-31 16:37 | Outpatient (AMB) | payer OTHER, SELFPAY ==
--- NOTE | 2024-08-31 16:53 | A.OFFPSYCH_ITS ---
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 pt reports she will be working on DBT skills with her therapist and Has a pending cardiac work up with planned holter monitor due to frequent PVCs. We discussed not making any changes to her meds until cardiac work up done; discussed PHP as an option for more support if she feels the need or continue to have self harm urges or behaviors. Pts PHQ9=3 and Her GAD7= 7. Past Psychiatric History: no IPLOC, no PHPP, one ED 24 hold when in college. Has outpatient therapy off and on since age 10 Subjective Subjective Subjective Medication Compliance: Yes Side effects from medications: No Review of Systems Medical Review of Systems: unchanged Mental Status Exam Mental Status Exam Patient Appearance: Well Grooomed and Appropriate Patient Orientation: Person, Place, Time and Situation Level of Consciousness: Awake and Appropriate Patient Behavior: Appropriate and Cooperative Mood Description: Anxious and Sad Affect Description: Anxious and Sad Patient Cognition Impaired: No Ability to Follow Directions: Good Speech Pattern: Clear Memory Description: Intact Hallucinations: None Delusions: Not Present Thought Process: Intact and Goal Oriented Thought Content: positive for Intact and positive for Goal Oriented Judgement: Good Assessment and Plan Assessment & Plan (1) Bipolar II disorder: Status: Acute Code(s): F31.81 - Bipolar II disorder (2) Anxiety: Status: Acute Code(s): F41.9 - Anxiety disorder, unspecified Plan continue meds per below consider PHP return for follow up in 4 weeks Medications: Refilled topiramate (Topamax) 25 mg PO TID 90 tabs 1RF hydroxyzine HCl 10 mg PO BID PRN 120 tabs 1RF anxiety, sleep risperidone 0.25 mg (1/2 x 0.5 mg) PO BID 90 tabs 1RF Counseling and coordination of Care Pt. Self Management counseling: Exercise, Maintenance-social rhythm, Mindfulness, Mod caffeine/ETOH intake, Nutrition education and improvement, Sleep hygiene, General coping skills and Problem solving Medication management counseling: Effectiveness, Side effects, Dosing range, Duration, Drug interaction and Adherence Diagnosis and Prognosis Counseling: Accuracy of diagnosis, Prognosis over time, Impact of diagnosis on life functions, Impact of family relationship, Problematic behaviors secondary to diagnosis and Adequacy of current interventions Details: I spent 40 minutes reviewing the record, seeing the patient and documenting in the medical record. Counseling provided to the patient/caregiver as outlined below. Addressed patient/caregiver concerns regarding current medication regime including effective adherence. Addressed patient/caregiver concerns regarding diagnosis and prognosis including accuracy of diagnosis, prognosis over time, impact of diagnosis. Addressed patient/caregiver concerns regarding impact of recent stressors. 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 pt older brother very violent at times; pt father worked 4 jobs and absent frequently; Substance History: etoh 2 x month; THC daily . no other drugs Trauma History: childhood. DCF involvement, early loss of mother Coding Level of Care Code Est Pt Level 4 (67051) Diagnoses Bipolar II disorder F31.81 Anxiety F41.9
== END 2024-08-31 16:46 | disposition home or self-care (01) ==
LOC: HO.HOP 16:37
PROVIDERS: PCP Family Medicine; Visit Provider Clinical Nurse Specialist Psychiatric/Mental Health
DX: F31.81 Bipolar II disorder (principal); F41.9 Anxiety disorder, unspecified
CPT/HCPCS: 99214

== ENCOUNTER → 2024-08-31 16:37 | Outpatient (BNVA) | payer OTHER, SELFPAY | PROVIDERS: PCP Family Medicine; Visit Provider Clinical Nurse Specialist Psychiatric/Mental Health | DX: F31.81 Bipolar II disorder (principal); F41.9 Anxiety disorder, unspecified | CPT/HCPCS: 99212 ==

== ENCOUNTER → 2024-09-14 13:48 | Outpatient (REF) | payer OTHER, SELFPAY | LOC: HO.CARD 13:48 | PROVIDERS: PCP Nurse Practitioner Family; Visit Provider Internal Medicine | DX: I49.3 Ventricular premature depolarization (principal) | CPT/HCPCS: 93246; 93306 ==

== ENCOUNTER → 2024-09-14 13:55 | Outpatient (BNV) | payer OTHER, SELFPAY | PROVIDERS: PCP Nurse Practitioner Family; Visit Provider Internal Medicine | DX: R94.31 Abnormal electrocardiogram [ECG] [EKG] (principal) | CPT/HCPCS: 93306 ==

== ENCOUNTER 2024-09-15 16:40 | Outpatient (REF) | payer OTHER, SELFPAY ==
[2024-09-15 17:41] LABS: HCG Quantitative < 2 mIU/mL
== END 2024-09-15 16:41 | disposition home or self-care (01) ==
LOC: HO.LAB 16:40
PROVIDERS: PCP Family Medicine; Visit Provider Clinical Nurse Specialist Psychiatric/Mental Health
DX: R55 Syncope and collapse (principal); F31.81 Bipolar II disorder; R79.89 Other specified abnormal findings of blood chemistry
CPT/HCPCS: 36415; 84702

== ENCOUNTER 2024-09-30 16:06 | Outpatient (AMB) | payer OTHER, SELFPAY ==
--- NOTE | 2024-09-30 16:08 | A.OFFPSYCH_ITS ---
Intake Intake Visit Reasons: follow up Performance Management Consultant Required: No Allergies No Known Allergies Allergy (Verified 08/17/24 13:19) Medication List - Last Reconciled 09/30/24 by Amelia Milton APRN hydroxyzine HCl 10 mg PO BID PRN topiramate (Topamax) 25 mg PO TID HPI- Psychiatric Chief Complaint: follow up HPI Narrative: Pt here for follow up for mood symptoms and anxiety. Pt started her period the day after stopping the risperdal. she also no longer has galactorrhea since stopping. Her test was negative. She is struggling with eating oftenmissing meals all day or eating only a small amount; she feels nauseous or anxious when she tries to eat. she is able to name 3 safe food: mashed potatoes, chandan noodle soup, and watermelon. She is isalso open minded about trying ensure. She has struggled with eating since 2018. She would like to gain weight and is not agraid of gaining weight; She is having emotional reactions to interactions with others; in her description it sounds more like PTSD and possible BPD rather than Bipolar Disorder; she has had early loss and neglect in childhood. She si working well with therapist. She is sexually active and hab=ving unprotected sex. she does not want to become ; given the number for tap[facility] and educated about control and safe sex options; she would benefit from consult with OBGYN as well. Past Psychiatric History: no IPLOC, no PHPP, one ED 24 hold when in college. Has outpatient therapy off and on since age 10 Subjective Subjective Subjective Medication Compliance: Yes Side effects from medications: No Review of Systems Medical Review of Systems: unchanged Mental Status Exam Mental Status Exam Patient Appearance: Well Grooomed Patient Orientation: Person, Place, Time and Situation Level of Consciousness: Awake and Appropriate Patient Behavior: Appropriate and Cooperative Mood Description: Sad Affect Description: Sad Patient Cognition Impaired: No Ability to Follow Directions: Good Speech Pattern: Soft-Spoken Memory Description: Intact Hallucinations: None Delusions: Not Present Thought Process: Intact and Goal Oriented Thought Content: positive for Intact and positive for Goal Oriented Judgement: Fair Assessment and Plan Assessment & Plan (1) PTSD (post-traumatic stress disorder): Status: Acute Code(s): F43.10 - Post-traumatic stress disorder, unspecified Plan rule out Borderline PD from trauma and neglect consider remeron 7.5mg daily work on eating 3 small meals a day and supplement with ensure follow up with [facility] for contriol and STD prevention Medications: Refilled topiramate (Topamax) 25 mg PO TID 90 tabs 1RF hydroxyzine HCl 10 mg PO BID PRN 120 tabs 1RF anxiety, sleep Counseling and coordination of Care Pt. Self Management counseling: Maintenance-social rhythm, Med illness tx adherence, Mod caffeine/ETOH intake, Nutrition education and improvement, Sleep hygiene and General coping skills Medication management counseling: Effectiveness, Side effects, Dosing range, Duration, Drug interaction and Adherence Diagnosis and Prognosis Counseling: Accuracy of diagnosis, Prognosis over time, Impact of diagnosis on life functions, Problematic behaviors secondary to diagnosis and Adequacy of current interventions Details: I spent 45 minutes reviewing the record, seeing the patient and documenting in the medical record. Counseling provided to the patient/caregiver as outlined below. Addressed patient/caregiver concerns regarding current medication regime including effective adherence. Addressed patient/caregiver concerns regarding diagnosis and prognosis including accuracy of diagnosis, prognosis over time, impact of diagnosis. Addressed patient/caregiver concerns regarding impact of recent stressors. 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 pt older brother very violent at times; pt father worked 4 jobs and absent frequently; Substance History: etoh 2 x month; THC daily . no other drugs Trauma History: childhood. DCF involvement, early loss of mother Coding Level of Care Code Est Pt Level 5 (72886) Diagnoses PTSD (post-traumatic stress disorder) F43.10
== END 2024-09-30 16:49 | disposition home or self-care (01) ==
LOC: HO.HOP 16:06
PROVIDERS: PCP Family Medicine; Visit Provider Clinical Nurse Specialist Psychiatric/Mental Health
DX: F43.10 Post-traumatic stress disorder, unspecified (principal)
CPT/HCPCS: 99215

== ENCOUNTER → 2024-09-30 16:06 | Outpatient (BNVA) | payer OTHER, SELFPAY | PROVIDERS: PCP Family Medicine; Visit Provider Clinical Nurse Specialist Psychiatric/Mental Health | DX: F43.10 Post-traumatic stress disorder, unspecified (principal); Z71.89 Other specified counseling | CPT/HCPCS: 99212 ==

== ENCOUNTER 2024-11-11 16:57 | Outpatient (AMB) | payer OTHER, SELFPAY ==
--- NOTE | 2024-11-11 16:58 | A.OFFPSYCH_ITS ---
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 She is eating better; she gained 4 pounds since last visit; she moved to a new apartment that is saving her money. She is having emotional reactions to interactions with others; it continues to sound as if theses emotional reactions are more like PTSD and possible BPD rather than Bipolar Disorder; she has had early loss and neglect in childhood. She julian working well with therapist. Pt has not had FIRST AID INSTRUCTOR consult yet but we discussed again today and she will follow up. She reports some road rage experiences. Past Psychiatric History: no IPLOC, no PHPP, one ED 24 hold when in college. Has outpatient therapy off and on since age 10 Subjective Subjective Subjective Medication Compliance: No Side effects from medications: No Review of Systems Medical Review of Systems: unchanged Mental Status Exam Mental Status Exam Patient Appearance: Well Grooomed Patient Orientation: Person, Place, Time and Situation Level of Consciousness: Awake and Appropriate Patient Behavior: Appropriate and Cooperative Mood Description: Happy, Anxious and Sad Affect Description: Happy, Anxious and Sad Patient Cognition Impaired: No Ability to Follow Directions: Good Speech Pattern: Soft-Spoken Memory Description: Intact Hallucinations: None Delusions: Not Present Thought Process: Intact and Goal Oriented Thought Content: positive for Intact and positive for Goal Oriented Judgement: Fair Assessment and Plan Assessment & Plan (1) PTSD (post-traumatic stress disorder): Status: Acute Code(s): F43.10 - Post-traumatic stress disorder, unspecified Plan rule out PTSD and Borderline PD from trauma and neglect consider remeron 7.5mg daily continue to work on eating 3 small meals a day and supplement with ensure follow up with tapestry or FIRST AID INSTRUCTOR referral from PCP for contriol and STD prevention Counseling and coordination of Care Pt. Self Management counseling: Maintenance-social rhythm, Med illness tx adherence, Mod caffeine/ETOH intake, Nutrition education and improvement, Sleep hygiene and General coping skills Medication management counseling: Effectiveness, Side effects, Dosing range, Duration, Drug interaction and Adherence Diagnosis and Prognosis Counseling: Accuracy of diagnosis, Prognosis over time, Impact of diagnosis on life functions, Problematic behaviors secondary to diagnosis and Adequacy of current interventions Details: I spent 35 minutes reviewing the record, seeing the patient and documenting in the medical record. Counseling provided to the patient/caregiver as outlined below. Addressed patient/caregiver concerns regarding current medication regime including effective adherence. Addressed patient/caregiver concerns regarding diagnosis and prognosis including accuracy of diagnosis, prognosis over time, impact of diagnosis. Addressed patient/caregiver concerns regarding impact of recent stressors. 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 pt older brother very violent at times; pt father worked 4 jobs and absent frequently; Substance History: etoh 2 x month; THC daily . no other drugs Trauma History: childhood. DCF involvement, early loss of mother Coding Level of Care Code Est Pt Level 4 (22312) Diagnoses PTSD (post-traumatic stress disorder) F43.10
== END 2024-11-11 17:26 | disposition home or self-care (01) ==
LOC: HO.HOP 16:57
PROVIDERS: PCP Family Medicine; Visit Provider Clinical Nurse Specialist Psychiatric/Mental Health
DX: F43.10 Post-traumatic stress disorder, unspecified (principal)
CPT/HCPCS: 99214

== ENCOUNTER → 2024-11-11 16:57 | Outpatient (BNVA) | payer OTHER, SELFPAY | PROVIDERS: PCP Family Medicine; Visit Provider Clinical Nurse Specialist Psychiatric/Mental Health | DX: F43.10 Post-traumatic stress disorder, unspecified (principal); F41.9 Anxiety disorder, unspecified | CPT/HCPCS: 99212 ==

== ENCOUNTER 2024-12-20 16:27 | Outpatient (AMB) | payer OTHER, SELFPAY ==
--- OUTSIDE RECORDS SUMMARY | 2024-12-20 16:30 | XMS_ITS | Patient Health Record ---
Author Organization [facility] Address [address] [place] [id number] Care Team Providers Care Mud Logger Name Role Phone JAE RICHARDSON Unavailable [phone] Allergies No Known Allergies Results Component Value Reference Range Notes Test, Urine Reviewed date:12/14/2024 05:16:14 PM Interpretation:negative Performing Lab: Notes/Report: negative Test, Urine neg Lot # [id number] Exp. Date 07/26/25 HBsAg Screen-[id number] Reviewed date:12/16/2024 08:46:48 AM Interpretation:Negative Performing Lab:[facility] [address], [address], [employer], Phone - [phone], Director - [facility] Notes/Report: Clinical Information:SRC: SOURCE NOT INDICATED HBsAg Screen Negative Negative Hepatitis B Surf Ab Quant-[id number] Reviewed date:12/16/2024 08:48:40 AM Interpretation:Not Immune Performing Lab:[facility], [address], [place], Phone - [phone], Director - [facility] Notes/Report: Clinical Information:SRC: SOURCE NOT INDICATED Hepatitis B Surf Ab Quant <3.5 Immunity>10 mIU /mL Status of Immunity Anti-HBs Level Inconsistent with Immunity 0.0 - 10.0 Consistent with Immunity >10.0 T pallidum Screening [place] -[id number] Reviewed date:12/16/2024 08:46:30 AM Interpretation:Negative Performing Lab:[facility], [address], [address], [place], Phone - [phone], Director - [facility] Notes/Report: Clinical Information:SRC: SOURCE NOT INDICATED T pallidum Antibodies Non Reactive Non Reactive HIV Ab/p24 Ag with Reflex-[id number] Reviewed date:12/16/2024 08:46:40 AM Interpretation:Negative Performing Lab:[facility], [address], [address], [place], Phone - [phone], Director - [facility] Notes/Report: Clinical Information:SRC: SOURCE NOT INDICATED HIV Ab/p24 Ag Screen Non Reactive Non Reactive HIV-1/HIV-2 antibodies and HIV-1 p24 antigen were NOT detected. There is no laboratory evidence of HIV infection. HIV Negative HCV Antibody RFX to Quant PC [id number] Reviewed date:12/16/2024 08:46:58 AM Interpretation:Negative Performing Lab:[facility], [address], [address], [place], Phone - [phone], Director - [facility] Notes/Report: Clinical Information:SRC: SOURCE NOT INDICATED Clinical Information:SRC: SOURCE NOT INDICATED HCV Ab Non Reactive Non Reactive Interpretation: Not infected with HCV unless early or acute infection is suspected (which may be delayed in an immunocompromised individual), or other evidence exists to indicate HCV infection. NuSwab VG+, Alannah 6sp-1800 68 Reviewed date:12/16/2024 04:50:37 PM Interpretation:Abnormal Performing Lab:[facility], [address] [place] [address], Phone - [phone], Director - [facility] Notes/Report: and Drug Administration. by [employer]. It has not been cleared or approved by the Food was BOKU and its performance characteristics determined 806750-Rgwlwac krusei, ILAN 164277-J parapsilosis/tropicalis; 424123-Jnfrpxp lusitaniae, ILAN; Test(s) 971362-Epjnyrq albicans, ILAN; 580110-Qnddsff glabrata, ILAN; and Drug Administration. by [employer]. It has not been cleared or approved by the Food was developed and its performance characteristics determined Megasphaera 1 Clinical Information:SRC: SOURCE NOT INDICATED Atopobium vaginae High - 2 BVAB 2 Low - 0 Megasphaera 1 Low - 0 Calculate total score by adding the 3 individual bacterial vaginosis (BV) marker scores together. Total score is interpreted as follows: Total score 0-1: Indicates the absence of BV. Total score 2: Indeterminate for BV. Additional clinical data should be evaluated to establish a diagnosis. Total score 3-6: Indicates the presence of BV. Alannah albicans, ILAN Negative Negative Alannah glabrata, ILAN Negative Negative C parapsilosis/tropicalis Negative Negative Th is assay does not differentiate C. tropicalis and C. parapsilosis. Alannah lusitaniae, IALN Negative Negative Alannah krusei, ILAN Negative Negative Trich vag by ILAN Negative Negative Chlamydia trachomatis, ILAN Negative Negative Neisseria gonorrhoeae, ILAN Negative Negative Ct/GC ILAN, Pharyngeal-[id number] Reviewed date:12/17/2024 08:31:14 AM Interpretation:Negative Performing Lab:[facility], [address], [address], [place], Phone - [phone], Director - [facility] Notes/Report: Clinical Information:SRC: SOURCE NOT INDICATED C. trachomatis, ILAN, Pharyn Negative Negative N. gonorrhoeae, ILAN, Pharyn Negative Negative Reason For Referral No Information Medications Medication SIG (Take, Route, Fr equency, Duration) Notes Start Date End Date Status Slynd 4 MG 1 tablet Orally Once a day; Duration: 84 days 12/14/2024 Active metroNIDAZOLE 500 MG 1 tablet Orally Twi ce a day, every 12 hours; Duration: 7 days 12/16/2024 Active hydrOXYzine HCl Acti ve Topiramate 75 mg Active Social History Sex Assigned At : Social History Observation Description Sex Assigned At Female Vital Signs Blood pressure diastolic 98 mm Hg 12/14/2024 Height 5'5 in 12/14/2024 Blood pressure systolic 142 mm Hg 12/14/2024 Weight 119.1 lbs 12/14/2024 BMI 19.82 kg/m2 12/14/2024 Encounters Encounter Location Date Provider Diagnosis [address] [place], [place] [id number] 12/14/2024 JAE RICHARDSON Encounter for other general counseling and advice on contraception Z30.09 ; Counseling, unspecified Z71.9 ; Encounter for test, result negative Z32.02 ; Encounter for screening for other infectious and parasitic diseases Z11.8 ; Encounter for screening for infections with a predominantly sexual mode of transmission Z11.3 ; Encounter for initial prescription of contraceptive pills Z30.011 ; Encounter for screening for human immunodeficiency virus [HIV] Z11.4 and Encounter for screening for other viral diseases Z11.59 [facility] [address] [place] [address] [address] [place], [place] [phone] 12/16/2024 JAE RICHARDSON Assessments Encounter Date Diagnosis (ICD Code) Assessment Notes Treatment Notes Treatment Clinical Notes Section Notes 12/14/2024 Encounter for other general counseling and advice on contraception (ICD-10 - Z30.09) Reviewed control options available. Reviewed risk, benefits and side effects of each method. Answered questions and concerns, and used shared decision-making to choose method. Clt prefers to start with OCs and can RTC at later date for nexplanon insertion if wants to switch to LARC. Discussed importance of follow up with cardiology and determine if any CI to control based on final diagnosis and findings. Spent ___ minutes doing the following: Chart Prep Obtaining/revie wing history Performing medically necessary exam Counseling/Coor dination of Care Documenting the visit Educating the patient Ordering medication/test /procedures Communication of test results New Patient: 94808 30 Minutes 12/14/2024 Counseling, unspecified (ICD-10 - Z71.9) Topiramate (Topamax) may reduce the effectiveness of both estrogen-containi ng and progestin-only contraceptives, particularly at daily doses exceeding 200 mg, and may increase the risk of breakthrough bleeding (BTB). At doses of less than or equal to 200 mg/day, limited pharmacokinetic data and real-world observational studies indicate no increased risk of unintended when used with combined oral contraceptives. Spent ___ minutes doing the following: Chart Prep Obtaining/revie wing history Performing medically necessary exam Counseling/Coor dination of Care Documenting the visit Educating the patient Ordering medication/test /procedures Communication of test results New Patient: 38164 30 Minutes 12/14/2024 Encounter for test, result negative (ICD-10 - Z32.02) Spent ___ minutes doing the following: Chart Prep Obtaining/revie wing history Performing medically necessary exam Counseling/Coor dination of Care Documenting the visit Educating the patient Ordering medication/test /procedures Communication of test results New Patient: 35805 30 Minutes 12/14/2024 Encounter for screening for other infectious and parasitic diseases (ICD-10 - Z11.8) Spent ___ minutes doing the following: Chart Prep Obtaining/revie wing history Performing medically necessary exam Counseling/Coor dination of Care Documenting the visit Educating the patient Ordering medication/test /procedures Communication of test results New Patient: 80369 30 Minutes 12/14/2024 Encounter for initial prescription of contraceptive pills (ICD-10 - Z30.011) Reviewed risks, benefits, advantages, disadvantages, side effects, effectiveness, how to take pill, missed pill protocol, ACHES emergency symptoms. Discussed pill does not protect against STIs.Condoms x 7d. Return in 3 months for pill check/annual and PAP Dispensed Slynd x 1 pack in house, lot number [id number], exp 09/2026, remainder of rx sent to pharmacy Spent ___ minutes doing the following: Chart Prep Obtaining/revie wing history Performing medically necessary exam Counseling/Coor dination of Care Documenting the visit Educating the patient Ordering medication/test /procedures Communication of test results New Patient: 30 Minutes 12/14/2024 Encounter for screening for infections with a predominantly sexual mode of transmission (ICD-10 - Z11.3) Reviewed routine screening, safe sex and consistent barrier protection. Aware of window period for testing and testing options. Discussed symptoms that would warrant further evaluation and follow-up care Spent ___ minutes doing the following: Chart Prep Obtaining/revie wing history Performing medically necessary exam Counseling/Coor dination of Care Documenting the visit Educating the patient Ordering medication/test /procedures Communication of test results New Patient: 30 Minutes 12/14/2024 Encounter for screening for human immunodeficiency virus [HIV] (ICD-10 - Z11.4) Spent ___ minutes doing the following: Chart Prep Obtaining/revie wing history Performing medically necessary exam Counseling/Coor dination of Care Documenting the visit Educating the patient Ordering medication/test /procedures Communication of test results New Patient: 30 Minutes 12/14/2024 Encounter for screening for other viral diseases (ICD-10 - Z11.59) Spent ___ minutes doing the following: Chart Prep Obtaining/revie wing history Performing medically necessary exam Counseling/Coor dination of Care Documenting the visit Educating the patient Ordering medication/test /procedures Communication of test results New Patient: 30 Minutes 12/14/2024 Other Encouraged foll ow up with cardiology for further eval. Can get clearance for [facility] if wants to consider option in the future Spent ___ minutes doing the following: Chart Prep Obtaining/revie wing history Performing medically necessary exam Counseling/Coor dination of Care Documenting the visit Educating the patient Ordering medication/test /procedures Communication of test results New Patient: 62347 30 Minutes Plan Of Treatment Next Appt Details Provider Name:JAE RICHARDSON , 03/28/2025 04:30:00 PM, [address] [place] [address], [facility], [place], [place], [phone], Insurance Providers Payer Name Payer Address Payer Phone Subscriber Number Group Number Insured Name Patient Relationship to Insured Coverage Start Date Coverage End Date [facility] [address] [place], [place] [phone] [id number] Pamela Gold Self - patient is the insured Medical (General) History Medical History History ICD Code Bipolar Depression/anxiety Trigeminal PVCs, elevated BP , followed by cardiology, next appt end of December 2024 Seizure x 2021 Hep B, not immune BV
--- OUTSIDE RECORDS SUMMARY | 2024-12-20 16:30 | XMS_ITS | Clinical Summary ---
Author Organization [facility] [address] [facility] Address [address] [place] [address] Phone Care Team Providers Care Volunteer Services Assistant Name Role Phone Marcy Ulrich MD Primary Care Provider Allergies No known active allergies Medications ARIPiprazole (ABILIFY) 2 mg tablet Take 1 tablet (2 mg total) by mouth 1 (one) time each day. Active FLUoxetine (PROzac) 20 mg capsule Take 1 capsule (20 mg total) by mouth 1 (one) time each day. Active hydrOXYzine HCL (ATARAX) 25 mg tablet Take 1 tablet (25 mg total) by mouth 3 (three) times a day if needed. Active Active Problems Problem Noted Date Diagnosed Date Bipolar 2 disorder (CMS/HCC V24, CMS/[facility] V28) PVC (premature ventricular contraction) 06/04/19 Anxiety disorder 04/04/2023 ERASTO (iron deficiency anemia) 04/04/2023 Syncope 04/04/2023 Immunizations Name Administration Dates Next Due DTaP (Infanrix) 6wks to less than 7yo ,10/16/2001,03/18/2001,09/12,1999 DTaP / Hib 12/30/2022 EMlO-GOA-VDF (Pentacel) 2mo to less than 5yo 09/12/2000,1999 HPV 9-valent (Gardisil) 9yo to less than 46yo 09/01/2018 HPV, Quadrivalent 10/27/2014, 4,12/11/2011,12/19 Hepatitis A Pediatric (Havri x; Vaqta) 12mo to less than 19yo 03/06/2017,11/18/2013 Hepatitis B (Ozburqu-V-Lxswt , Recombivax HB-Adult) 19yo and older 06/09/2017,09/18/2000,1999,08/15 IPV Inactivated polio (Ipol) 6wks and older 11/16/2003,03/18/2001,09/12/2000,10/31 Influenza trivalent, 0.5mL, preservative free (Fluarix; FluLaval; Fluzone) ages 6mo and older (Afluria) 3 years and older 04/05/2022,02/21/2021,02/03/2020 MMR, measles mumps and rubel la Live (Priorix; M-M-R II) 12mo and older 06/09/2017,08/30/2004,10/16/2001 Meningococcal MCV4P 10/23/2016,12/19/2010 Pneumococcal Conjugate Vacci ne, 7 Valent 09/18/2000 Tdap Tetanus diptheria acell ular pertussis (Boostrix; Adacel) 7yo and older 03/06/2017,12/09/2012 Varicella live (Varivax) 12m o and older 10/17/2010,11/15/2002 Surgical History Surgery Date Site/Laterality Comments OTHER SURGICAL HISTORY PROCEDURE: DENIES PREVIOUS SURGERY Medical History Medical History Date Comments Anxiety disorder DX:Anxiety diso rder ERASTO (iron deficiency anemia) DX: ERASTO (iron deficiency anemia) Syncope DX:Syncope Bipolar 2 disorder (CMS/HCC V24, CMS/HCC V28) DX:Bipolar 2 disorder (HCC) Family History Medical History Relation Name Comments No Known Problems Brother 1 Alcohol/Drug Father Other: AIDS Father Other cancer Maternal Grandfather Alcohol/Drug Maternal Grandmother Diabetes Maternal Grandmother Alcohol/Drug Mother Other: AIDS Mother Other: Other Paternal Grandfather No Known Problems Paternal Grandmother No Known Problems Sister Relation Name Status Comments Brother 1 Alive Brother 2 Alive Father Alive Maternal Grandfather Alive Maternal Grandmother Alive Mother Paternal Grandfather Paternal Grandmother Sister Alive Social History Tobacco Use Types Packs/Day Years Used Date Smoking Tobacco: Some Days Smokeless Tobacco: Never Alcohol Use Standard Drinks/Week Comments Yes 0 (1 standard drink = 0.6 oz pur e alcohol) Comments Unknown Sex and Gender Information Value Date Recorded Sex Assigned at Not on file Legal Sex Female 3:01 PM EST Gender Identity Not on file Sexual Orientation Not on file Obstetrics History Last Filed Vital Signs Vital Sign Reading Time Taken Comments Blood Pressure 105/58 06/04/2023 11:18 AM EST Pulse 75 06/04/2023 11:18 AM EST Temperature - - Respiratory Rate - - Oxygen Saturation - - Inhaled Oxygen Concentration - - Weight 61.5 kg (135 lb 9.6 oz) 06/04/2023 11:18 AM EST Height 165.1 cm (5' 5 ) 06/04/2023 11:18 AM EST Body Mass Index 22.57 06/04/2023 11:18 AM EST Plan of Treatment Upcoming Encounters Date Type Department Care Team (Late st Contact Info) Description 02/02/2025 3:00 PM EDT Office Visit Adult Medicine - [address] [phone] Shawn Reyes PA [address] [place] [address] Health Maintenance Due Date Last Done Comments Pneumococcal Vaccine: Pediatrics (0 to 5 Years) and At-Risk Patients (6 to 49 Years) (1 of 1 - PPSV23) 08/15/2005 09/18/2000 Cervical Cancer Screening: Pap Smear 09/01/2021 09/01/2018 Social Influencers of Health Screening 06/15/2023 COVID-19 Vaccine ( season) 2024 05/07/2021, 09/21/2020, 08/24/2020 Depression Screening 05/12/2024 Influenza Vaccine (#1) 2025 , 02/21/2021, 02/03/2020 Cholesterol Screening (Lipid Panel) 06/04/2028 06/04/2023 DTaP,Tdap,and Td Vaccines (9 - Td or Tdap) 12/30/2032 12/30/2022, 03/06/2017, 12/09/2012, Additional history exists IPV Vaccines Completed 11/16/2003, 11/2000, 09/12/2000, Additional history exists Varicella Vaccines Completed 10/17/2010, 11/15/2002 Meningococcal ACWY Vaccine Completed 10/23/2016, Hepatitis A Vaccines Completed 03/06/2017, 11/19/19 14 Hepatitis B Vaccines Completed 06/09/2017, 09/18/2000, 1999, Additional history exists MMR Vaccines Completed 06/09/2017, 08/11, 10/16/2001 HPV Vaccines Completed 09/01/2018, 10/10, 07/26/2013, Additional history exists HIB Vaccines Aged Out 12/30/2022, 08/2000, 1999 No longer eligible based on patient's age to complete this topic Gonorrhea/Chlamydia Screening Discontinued 06/04/2023 HIV Screening Completed 06/04/2023 Hepatitis C Screening Completed 06/04/2023 Meningococcal B Vaccine Aged Out No l onger eligible based on patient's age to complete this topic RSV Immunization Patients Under 20 months Aged Out No longer eligible based on patient's age to complete this topic Procedures Procedure Name Priority Date/Time Associated Diagnosis Comments HEPATITIS C SCREENING Routine 06/04/2023 HIV SCREENING Routine 06/04/2023 LIPID PANEL Routine 06/04/2023 GONORRHEA/CHLAMYDIA SCRREENING Routine 06/04/2023 HPV Routine 09/01/2018 from Last 3 Months or Most Recently Relevant to Health Maintenance Results * HIV Screening (06/04/2023) HIV Screening abstracted Historical Provider HEALTH MAINTENANCE Final Result * Hepatitis C Screening (06/04/2023) Hepatitis C Screening abstracted Historical Provider HEALTH MAINTENANCE Final Result * Gonorrhea/Chlamydia Screening (06/04/2023) Gonorrhea/Chla mydia Screening abstracted Historical Provider HEALTH MAINTENANCE Final Result * Lipid panel (06/04/2023) Pathologist [facility] LDL/HDL Ratio 2 0 - 4 Triglycerides 62 0 - 150 mg/dL Cholesterol 184 0 - 200 mg/dL HDL 85 >=40 mg/dL LDL Cholesterol 87 0 - 100 mg/dL Blood Venous blood specimen / Unknown Historical Provider LAB BLOOD ORDERABLES Tina l Result * Cervical Cancer Screening: HPV (09/01/2018) Pathologist [facility] Cervical Cancer Screening: HPV no interpretation , abstracted Historical Provider HEALTH MAINTENANCE Final Result from Last 3 Months or Most Recently Relevant to Health Maintenance Insurance [facility] [employer] PL[employer] Care Teams Volunteer Services Assistant Relationship Specialty Start Date End Date Marcy Ulrich MD [address] [place] [phone] PCP - General 08/29/22
--- NOTE | 2024-12-20 16:45 | A.OFFPSYCH_ITS ---
Intake Intake Visit Reasons: follow up Hand Tire Trimmer Required: No Allergies No Known Allergies Allergy (Verified 08/17/24 13:19) Medication List - Last Reconciled 12/20/24 by Amelia Milton APRN drospirenone (contraceptive) (Slynd) 1 tab PO DAILY hydroxyzine HCl 10 mg PO BID PRN topiramate (Topamax) 25 mg PO TID HPI- Psychiatric Chief Complaint: follow up HPI Narrative: Pt here for follow up for mood symptoms and anxiety. pts mood stable overall; she is working on self care; had appt for STI testing and started BC. will see PCP soon and get a obgyn visit for ongoing care. She is eating better; she is adjusting to new apartment. She is working on boundaries in therapy; she is making good progress. it continues to sound as if theses emotional reactions are more like PTSD and possible BPD rather than Bipolar Disorder; she has had early loss and neglect in childhood. No high risk behaviors. Past Psychiatric History: no IPLOC, no PHPP, one ED 23 hold when in college. Has outpatient therapy off and on since age 10 Subjective Subjective Subjective Medication Compliance: No Side effects from medications: No Review of Systems Medical Review of Systems: unchanged Mental Status Exam Mental Status Exam Patient Appearance: Well Grooomed Patient Orientation: Person, Place, Time and Situation Level of Consciousness: Awake and Appropriate Patient Behavior: Appropriate and Cooperative Mood Description: Happy, Anxious and Sad Affect Description: Happy, Anxious and Sad Patient Cognition Impaired: No Ability to Follow Directions: Good Speech Pattern: Soft-Spoken Memory Description: Intact Hallucinations: None Delusions: Not Present Thought Process: Intact and Goal Oriented Thought Content: positive for Intact and positive for Goal Oriented Judgement: Fair Assessment and Plan Assessment & Plan (1) PTSD (post-traumatic stress disorder): Status: Acute Code(s): F43.10 - Post-traumatic stress disorder, unspecified Plan rule out PTSD and Borderline PD from trauma and neglect consider remeron 7.5mg daily continue to work on eating 3 small meals a day and supplement with ensure Medications: Refilled topiramate (Topamax) 25 mg PO TID 90 tabs 1RF hydroxyzine HCl 10 mg PO BID PRN 120 tabs 1RF anxiety, sleep Counseling and coordination of Care Pt. Self Management counseling: Maintenance-social rhythm, Med illness tx adherence, Mod caffeine/ETOH intake, Nutrition education and improvement, Sleep hygiene and General coping skills Medication management counseling: Effectiveness, Side effects, Dosing range, Duration, Drug interaction and Adherence Diagnosis and Prognosis Counseling: Accuracy of diagnosis, Prognosis over time, Impact of diagnosis on life functions, Problematic behaviors secondary to diagnosis and Adequacy of current interventions Details: I spent 35 minutes reviewing the record, seeing the patient and documenting in the medical record. Counseling provided to the patient/caregiver as outlined below. Addressed patient/caregiver concerns regarding current medication regime including effective adherence. Addressed patient/caregiver concerns regarding diagnosis and prognosis including accuracy of diagnosis, prognosis over time, impact of diagnosis. Addressed patient/caregiver concerns regarding impact of recent stressors. 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 pt older brother very violent at times; pt father worked 4 jobs and absent frequently; Substance History: etoh 2 x month; THC daily . no other drugs Trauma History: childhood. DCF involvement, early loss of mother Coding Level of Care Code Est Pt Level 4 (29646) Diagnoses PTSD (post-traumatic stress disorder) F43.10
== END 2024-12-20 17:04 | disposition home or self-care (01) ==
LOC: HO.HOP 16:27
PROVIDERS: PCP Family Medicine; Visit Provider Clinical Nurse Specialist Psychiatric/Mental Health
DX: F43.10 Post-traumatic stress disorder, unspecified (principal)
CPT/HCPCS: 99214

== ENCOUNTER → 2024-12-20 16:27 | Outpatient (BNVA) | payer OTHER, SELFPAY | PROVIDERS: PCP Family Medicine; Visit Provider Clinical Nurse Specialist Psychiatric/Mental Health | DX: F43.10 Post-traumatic stress disorder, unspecified (principal) | CPT/HCPCS: 99212 ==

== ENCOUNTER 2025-04-05 16:33 | Outpatient (AMB) | payer OTHER, SELFPAY ==
--- OUTSIDE RECORDS SUMMARY | 2025-03-28 11:30 | XMS_ITS ---
Author Organization [facility] Address [address] [place] [address] Care Team Providers Care Louver Mortiser Operator Name Role Phone JAE SALINAS [phone] REASON FOR VISIT Annual Exam/Pill check Social History Sex Assigned At : Social History Observation Description Sex Assigned At Female Encounters Encounter Location Date Provider Diagnosis [facility] [address] [place] [address] [address] [place], [place] [phone] 03/28/2025 JAE SALINAS Plan Of Treatment Next Appt Details Provider Name:KEVIN NYE, 10:45:00 AM, [address] [place] [address], [address], [place], [place], [phone], Progress Notes * Pamela GOLD DDOB: [birth year] (24 yo F)Acc No.[id number]:03/28/2025 Progress Notes Patient: Pamela Pisano Provider: Perla Salinas NP :2000 A ge:24 Y S ex:Female Date:03/28/2025 Address:[address] [place] Subjective: * Chief Complaints: * A nnual Exam/Pill check * Electronic signature of PETE SALINAS NP on 04/05/2025 at 07:34 PM EST Sign off status: Pending * Provider: Perla Salinas NP Date: 05/28/2024 Generated for Printi ng/Faxing/eTransmitting on: 1 06/05/2024 07:34 PM EST
--- OUTSIDE RECORDS SUMMARY | 2025-04-01 11:04 | XMS_ITS ---
Author Organization [facility] Address [address] [place] [address] Care Team Providers Care New Accounts Clerk Name Role Phone KEVIN NYE Unavailable [phone] Allergies No Known Allergies REASON FOR VISIT ext refill Medications Medication SIG (Take, Route, Fr equency, Duration) Notes Start Date End Date Status Slynd 4 MG Tablet 1 tablet Orally Once a day; Duration: 84 days 12/14/2024 Active Social History Sex Assigned At : Social History Observation Description Sex Assigned At Female Encounters Encounter Location Date Provider Diagnosis [facility] [address] [place] [phone] 04/01/2025 KEVIN POPEYE Encounter for initia l prescription of contraceptive pills Z30.011 Assessments Encounter Date Diagnosis (ICD Code) Assessment Notes Treatment Notes Treatment Clinical Notes Section Notes 04/01/2025 Encounter for initial prescription of contraceptive pills (ICD-10 - Z30.011) Plan Of Treatment Medication Medication Name Sig Start Date Stop Date Notes Slynd 4 MG Tablet 1 tablet Orally Once a day; Duration: 84 days 12/14/2024 Next Appt Details Provider Name:KEVIN NYE, 10:45:00 AM, [address] [place] [address], [place], [place], [phone], Progress Notes * Pamela GOLD DDOB: [birth year] (24 yo F)Acc No.[id number]:04/01/2025 Patient: Pamela LAM :2000 A ge:24 Y S ex:Female Address:[address] [place] [address], [place], [address] * Refills Refill Slynd Tablet, 4 MG, Orally, 84 Tablet, 1 tablet, Once a day, 84 days, Refills=0 Subjective: * Chief Complaints: * E xt refill * Allergies: N .K.D.A.yesAllergies Verified. Assessment: * Assessment: 1. E jeannineunter for initial prescription of contraceptive pills - Z30.011 Plan: * Treatment: * true * Date: Generated for Yamil alvarado/Mercedes/Domingosmitting on: 06/05/2024 07:35 PM EST
--- NOTE | 2025-04-05 15:34 | MHC.OFFVISPS ---
Intake Intake Visit Reasons: f/u consultation Mdm Developer Required: No Allergies No Known Allergies Allergy (Verified 08/17/24 13:19) Medication List - Last Reconciled 04/05/25 by Amelia Milton APRN drospirenone (contraceptive) (Slynd) 1 tab PO DAILY hydroxyzine HCl 10 mg PO BID PRN topiramate (Topamax) 25 mg PO TID HPI- Psychiatric Chief Complaint: f/u consultation HPI Narrative: Pt seen via telehealth for follow up for mood symptoms and anxiety. pts reports she stopped taking the topiramate TID and only taking it onec in am. She reports that over past month that her behavior has become more impulsive. She reports she has impulsively initiated sex with people who are not suitable for her. She is drinking more alcohol on weekends. She is making purchases that are not in her budget. She minimizes these to some degree but her therapist urged her to contact this creative writer. She has missed some work due to feeling she couldn't cope and her frustration level was very low; she was afraid she may lose her temper while at work so she has taken more days off. She is eating better. We discussed asking her therapist from [facility] in [facility] to refer her to a med provider through the clinic as I explained to her that I was a contract consultant to her neurologist and her neurologist could not continue to follow her psychiatrically indefinitely. She will ask her therapist to refer her to the clinic's med provider. Past Psychiatric History: no IPLOC, no PHPP, one ED 23 hold when in college. Has outpatient therapy off and on since age 10 Subjective Subjective Medication Compliance: Yes Side effects from medications: No Review of Systems Medical Review of Systems: unchanged Mental Status Exam Mental Status Exam Patient Orientation: Person, Place, Time and Situation Level of Consciousness: Awake, Appropriate and Alert Patient Behavior: Appropriate, Avoidant and Good Eye Contact Mood Description: Constricted Affect Description: Constricted Patient Cognition Impaired: No Ability to Follow Directions: Good Speech Pattern: Clear and Appropriate Memory Description: Intact Hallucinations: None Delusions: Not Present Thought Process: Intact and Goal Oriented Thought Content: positive for [place] Judgement: Fair Telehealth Telehealth Telehealth Platform: [facility] Location of provider rendering services: practice address Location of patient: address on file Patient Identification confirmed using: Name, : Yes Telehealth method: video Patient verbally consented to treatment: Yes Patient verbally consented to billing insurance company: Yes Patient informed of any privacy concerns related to visit: Yes Minutes spent on Phone/Video with Pt.: 26 Assessment and Plan Assessment & Plan (1) PTSD (post-traumatic stress disorder): Status: Acute Code(s): F43.10 - Post-traumatic stress disorder, unspecified Plan rule out PTSD and Borderline PD from trauma and neglect vs Bipolar II Disorder resume topamax 25mg BID x 3 weeks then increase to TID continue to work on eating 3 small meals a day and supplement with ensure return in 6 weeks obtain referral to med provider at clinic therapist works at- [facility] Medications: Refilled hydroxyzine HCl 10 mg PO BID PRN 60 tabs 1RF anxiety, sleep topiramate (Topamax) 25 mg PO TID 90 tabs 1RF Counseling and coordination of Care Pt. Self Management counseling: Maintenance-social rhythm, Med illness tx adherence, Mod caffeine/ETOH intake, Nutrition education and improvement, Sleep hygiene and General coping skills Medication management counseling: Effectiveness, Side effects, Dosing range, Duration, Drug interaction and Adherence Diagnosis and Prognosis Counseling: Accuracy of diagnosis, Prognosis over time, Impact of diagnosis on life functions, Problematic behaviors secondary to diagnosis and Adequacy of current interventions Details: I spent 35 minutes reviewing the record, seeing the patient and documenting in the medical record. Counseling provided to the patient/caregiver as outlined below. Addressed patient/caregiver concerns regarding current medication regime including effective adherence. Addressed patient/caregiver concerns regarding diagnosis and prognosis including accuracy of diagnosis, prognosis over time, impact of diagnosis. Addressed patient/caregiver concerns regarding impact of recent stressors. 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 pt older brother very violent at times; pt father worked 4 jobs and absent frequently; Substance History: etoh 2 x month; THC daily . no other drugs Trauma History: childhood. DCF involvement, early loss of mother Coding Level of Care Code Est Pt Level 4 (32089) Diagnoses PTSD (post-traumatic stress disorder) F43.10
--- OUTSIDE RECORDS SUMMARY | 2025-04-05 19:35 | XMS_ITS | Patient Health Record ---
Author Organization [facility] Address [address] [place] [address] Care Team Providers Care Granite Polisher Machine Name Role Phone JAE RICHARDSON Unavailable [phone] POPEYE KEVIN Unavailable [phone] Allergies No Known Allergies Results Component Value Reference Range Flag Notes T pallidum Screening [place] -[id number] Reviewed date:12/16/2024 08:46:30 AM Interpretation:Negative Performing Lab:[facility], [address], [address], [place], Phone - [phone], [facility] Notes/Report: Clinical Information:SRC: SOURCE NOT INDICATED T pallidum Antibodies Non Reactive Non Reactive Ct/GC ILAN, Pharyngeal-[id number] Reviewed date:12/17/2024 08:31:14 AM Interpretation:Negative Performing Lab:[facility], [address], [address], [place], Phone - [phone], [facility] Notes/Report: Clinical Information:SRC: SOURCE NOT INDICATED C. trachomatis, ILAN, Pharyn Negative Negative N. gonorrhoeae, ILAN, Pharyn Negative Negative NuSwab VG+, Alannah 6sp-1800 68 Reviewed date:12/16/2024 04:50:37 PM Interpretation:Abnormal Performing Lab:[facility], [address] [facility], [place], Phone - [phone], Director - [place]uy Notes/Report: and Drug Administration. by [employer]. It has not been cleared or approved by the Food was developed and its performance characteristics determined 757825-Suxrtpp krusei, ILAN 734408-O parapsilosis/tropicalis; 937585-Mskbnue lusitaniae, ILAN; Test(s) 988499-Pliczeq albicans, ILAN; 531871-Dtjucrd glabrata, ILAN; and Drug Administration. by [employer]. It has not been cleared or approved by the Food was developed and its performance characteristics determined Megasphaera 1 Clinical Information:SRC: SOURCE NOT INDICATED Atopobium vaginae High - 2 A BVAB 2 Low - 0 Megasphaera 1 [...] ILAN Negative Negative C parapsilosis/tropicalis Negative Negative This assay does not differentiate C. tropicalis and C. parapsilosis. Alannah lusitaniae, ILAN Negative Negative Alannah krusei, ILAN Negative Negative Trich vag by ILAN Negative Negative Chlamydia trachomatis, ILAN Negative Negative Neisseria gonorrhoeae, ILAN Negative Negative HCV Antibody RFX to Quant PC [id number] Reviewed date:12/16/2024 08:46:58 AM Interpretation:Negative Performing Lab:[facility], [address], [place], Phone - [phone], Director - [facility] Notes/Report: Clinical Information:SRC: SOURCE NOT INDICATED Clinical Information:SRC: SOURCE NOT INDICATED HCV Ab Non Reactive Non Reactive Interpretation: Not infected with HCV unless early or acute infection is suspected (which may be delayed in an immunocompromised individual), or other evidence exists to indicate HCV infection. HIV Ab/p24 Ag with Reflex-[id number] Reviewed date:12/16/2024 08:46:40 AM Interpretation:Negative Performing Lab:[facility], [address], [address], [place], Phone - [phone], Director - [facility] Notes/Report: Clinical Information:SRC: SOURCE NOT INDICATED HIV Ab/p24 Ag Screen Non Reactive Non Reactive HIV-1/HIV-2 antibodies and HIV-1 p24 antigen were NOT detected. There is no laboratory evidence of HIV infection. HIV Negative Hepatitis B Surf Ab Quant-[id number] Reviewed date:12/16/2024 08:48:40 AM Interpretation:Not Immune Performing Lab:[facility] [place], [address], [address], [place], Phone - [phone], Director - [facility] Notes/Report: Clinical Information:SRC: SOURCE NOT INDICATED Hepatitis B Surf Ab Quant <3.5 Immunity>10 mIU/mL L Status of Immunity Anti-HBs Level Inconsistent with Immunity 0.0 - 10.0 Consistent with Immunity >10.0 HBsAg Screen-[id number] Reviewed date:12/16/2024 08:46:48 AM Interpretation:Negative Performing Lab:[facility] [place], [address], [address], [place], Phone - [phone], Director - [facility] Notes/Report: Clinical Information:SRC: SOURCE NOT INDICATED HBsAg Screen Negative Negative Test, Urine Reviewed date:12/14/2024 05:16:14 PM Interpretation:negative Performing Lab: Notes/Report: negative Test, Urine neg Lot # [id number] Exp. Date 07/26/25 Reason For Referral No Information Medications Medication SIG (Take, Route, Frequency, Duration) Notes Start Date End Date Status metroNIDAZOLE 500 MG Tablet 1 tablet Ora lly Twice a day, every 12 hours; Duration: 7 days 12/16/2024 Active hydrOXYzine HCl Acti ve Slynd 4 MG Tablet 1 tablet Orally Once a day; Duration: 84 days 12/14/2024 Active Topiramate 75 mg Active Social History Sex Assigned At : Social History Observation Description Sex Assigned At Female Social History HIV Risk Assessment Social Info Question Answer Notes Additional Questions Is an HIV Risk Assessment being c onducted? Yes Did you have a blood transfusion prior to 1985? No Do you have an unlicensed body piercing or tattoo? No Human Trafficking: Social Info Question Answer Notes Human Trafficking Experienced: No PrEP for HIV: Social Info Question Answer Notes PrEP for HIV Is the client intere sted in beginning/continuing PrEP for HIV? No Sexual History: Social Info Question Answer Notes Sexual History: Sexual History Reviewed: Partner s, Practices, Protection/Past STIs Currently sexually active? Yes Sexually active with: Men Number of male partners 1 Your sexual activities include: anal intercourse, oral intercourse, vaginal intercourse Do you use condoms? No Number of partners in past 3 months: 2 Number of partners in past year: 2 Does your partner(s) currently have any STIs? No Drugs/Alcohol: Social Info Question Answer Notes Drug/Alcohol Use Do you or have you used drugs? Yes, c urrently By what route are you taking drugs? Please check all that apply: Smoking Which drug(s) do you smoke? Marijuana When did you last use? Do you want to quit drugs? No Do you or have you used alcohol? Yes, currently 3x a motnh Food Access: Social Info Question Answer Notes Food Access The Client's current access to food is Secure Food Access Relationships: Social Info Question Answer Notes Relationships Has the client experienced any of the following: Client has never experienced harmful relationships Housing Social Info Question Answer Notes Housing The client's current living situation is: stable housing Tobacco Use: Social Info Question Answer Notes Tobacco Use: Do you/have you used tobacco? Yes, currently Tobacco with marijuana Tobacco Smoking Status Unknown if ever smoked Vital Signs Blood pressure diastolic 98 mm Hg 12/14/2024 Height 5'5 in 12/14/2024 Blood pressure systolic 142 mm Hg 12/14/2024 Weight 119.1 lbs 12/14/2024 BMI 19.82 kg/m2 12/14/2024 Encounters Encounter Location Date Provider Diagnosis [facility] [address] [place] [phone] 12/14/2024 JAE RICHARDSON Encounter for other general [...] for screening for other viral diseases Z11.59 [facility] [address] [place], [place] [phone] 12/16/2024 JAE RICHARDSON [facility] [address] [place], [place] [phone] 04/01/2025 KEVIN NYE Encounter for initia l prescription of contraceptive [...] /procedures Communication of test results New Patient: 77983 30 Minutes 04/01/2025 Encounter for initial prescription of contraceptive pills (ICD-10 - Z30.011) 12/14/2024 Counseling, unspecified (ICD-10 - Z71.9) Topiramate [...] /procedures Communication of test results New Patient: 46131 30 Minutes 12/14/2024 Encounter for test, result negative (ICD-10 - Z32.02) Spent ___ minutes doing the following: Chart Prep Obtaining/revie wing history Performing medically necessary exam Counseling/Coor dination of Care Documenting the visit Educating the patient Ordering medication/test /procedures Communication of test results New Patient: 69831 30 Minutes 12/14/2024 Encounter for screening for other infectious and parasitic diseases (ICD-10 - Z11.8) Spent ___ minutes doing the following: Chart Prep Obtaining/revie wing history Performing medically necessary exam Counseling/Coor dination of Care Documenting the visit Educating the patient Ordering medication/test /procedures Communication of test results New Patient: 71392 30 Minutes 12/14/2024 Encounter for initial prescription of contraceptive pills (ICD-10 - Z30.011) Reviewed risks, benefits, advantages, disadvantages, side effects, effectiveness, how to take pill, missed pill protocol, ACHES emergency symptoms. Discussed pill does not protect against STIs.Condoms x 7d. Return in 3 months for pill check/annual and PAP Dispensed Slynd x 1 pack in house, lot number [id number], exp 09/2026, remainder of rx sent to [...] /procedures Communication of test results New Patient: 07410 30 Minutes Plan Of Treatment Next Appt Details Provider Name:KEVIN NYE, 10:45:00 AM, [address] [place] [address], [facility] [place], [place], [place], [phone], Insurance Providers Payer Name Payer Address Payer Phone Subscriber Number Group Number Insured Name Patient Relationship to Insured Coverage Start Date Coverage End Date [facility] [address] [place], [place] [phone] [id number] Pamela Gold Self - patient is the insured Medical (General) History Medical History History ICD Code Bipolar Depression/anxiety Trigeminal PVCs, elevated BP , followed by cardiology, next appt end of December 2024 Seizure x 2021 Hep B, not immune BV
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
== END 2025-04-05 16:34 | disposition home or self-care (01) ==
LOC: HO.HOP 16:33
PROVIDERS: PCP Family Medicine; Visit Provider Clinical Nurse Specialist Psychiatric/Mental Health
DX: F43.10 Post-traumatic stress disorder, unspecified (principal)
CPT/HCPCS: 99214

== ENCOUNTER → 2025-04-05 16:33 | Outpatient (BNVA) | payer OTHER, SELFPAY | PROVIDERS: PCP Family Medicine; Visit Provider Clinical Nurse Specialist Psychiatric/Mental Health | DX: F43.10 Post-traumatic stress disorder, unspecified (principal) | CPT/HCPCS: 99212 ==

== ENCOUNTER 2025-04-13 14:55 | Outpatient (AMB) | payer OTHER, SELFPAY ==
--- OUTSIDE RECORDS SUMMARY | 2025-03-28 11:30 | XMS_ITS ---
Author Organization [facility] Address [address] [place] [address] Care Team Providers Care Certified Ophthalmic Assistant Name Role Phone JAE SALINAS [phone] REASON FOR VISIT Annual Exam/Pill check Social History Sex Assigned At : Social History Observation Description Sex Assigned At Female Encounters Encounter Location Date Provider Diagnosis [facility] [address] [place] [address] [address] [place], [place] [phone] 03/28/2025 JAE SALINAS Plan Of Treatment Next Appt Details Provider Name:KEVIN NYE, 10:45:00 AM, [address] [place] [address], [address], [place], [place], [phone], Progress Notes * Pamela GOLD DDOB: [birth year] (24 yo F)Acc No.[id number]:03/28/2025 Progress Notes Patient: Pamela Pisano Provider: Perla Salinas NP :2000 A ge:24 Y S ex:Female Date:03/28/2025 Address:[address] [id number] Subjective: * Chief Complaints: * A nnual Exam/Pill check * Electronic signature of PETE SALINAS NP on 04/13/2025 at 05:49 PM EST Sign off status: Pending * Provider: Perla Salinas NP Date: 05/28/2024 Generated for Printi ng/Faxing/eTransmitting on: 1 06/14/2024 05:49 PM EST
[2025-04-13 15:04] VITALS: BP 110/60; PULSE 64; BMI 20.5
--- NOTE | 2025-04-13 15:04 | MHC.OFFVIS ---
Vital Signs 04/13/25 15:04 Height 5 ft 5 in Weight 123 lb 7.342 oz BMI 20.5 BP 110/60 Blood Pressure Location Lt brachial Position Sitting Pulse 64 Intake Visit Reasons: rs x3 HS pt/ fu holter monitor Intake Note: Follow-up after holter feeling good Award Clerk Required: No Allergies No Known Allergies Allergy (Verified 08/17/24 13:19) HPI Comments Details: This is a 24-year-old female patient coming in for a follow-up visit. Patient was seen in the office previously for syncopal and near syncope episodes since over 10 years ago. In the past, some episodes were triggered with smoking marijuana and cigarettes and some during shower. Patient states that her symptoms, as they are she is going to faint and then she has to sit down and do some deep breathing after which patient feels okay. She also sometimes feels ringing in the ear with these episodes. Patient states that she has not had any syncope episodes in the recent months but has had lightheadedness and dizziness. Patient has undergone a Holter study and an echocardiogram since last visit and is here to review the results with this. Patient notes that she is only drinking about 32 Oz of water a day. Patient is otherwise denying any exertional chest pain, shortness of breath, palpitations, orthopnea, PND, or leg edema. [facility] Medical History Bipolar II disorder Family History Maternal Grandmother DM2 (diabetes mellitus, type 2) Mother AIDS Father AIDS Social History Alcohol intake: never Patient Tobacco Use Status: Never used Tobacco Review of Systems Const Denies chills, Denies fatigue, Denies fever(s), Denies frequent falls, Denies weakness, Denies weight gain and Denies weight loss ENT Denies dizziness Card Denies chest pain, Denies leg edema, Denies lightheadedness, Denies palpitations, Denies dyspnea, Denies dyspnea on exertion, Denies orthopnea and Denies other (loss of consciousness) Resp Denies cough, Denies dyspnea and Denies dyspnea on exertion GI Denies hematochezia and Denies change in stool character Musc Denies abnormal gait, Denies muscle weakness, Denies numbness, Denies radiating pain into limb and Denies tingling Neuro Denies abnormal gait, Denies dizziness, Denies frequent falls, Denies numbness, Denies tingling and Denies weakness Endo Denies fatigue and Denies palpitations Physical Exam Vital Signs: Last Vital Signs Pulse 64 04/13/25 15:04 BP 110/60 04/13/25 15:04 BMI result Body Mass Index 20.5 Const General: cooperative, healthy appearing, comfortable and no acute distress Orientation/consciousness: patient oriented x3 HEENT Head: Yes normal to inspection Neck Neck: Yes normal visual inspection, Yes trachea midline and Yes supple Chest Chest palpation & inspection: normal inspection of the chest Resp Effort & Inspection: normal respiratory effort Auscultation: clear to auscultation bilaterally, no crackles, no rales, no rhonchi and no wheezes Cardio Jugular venous distension: no JVD Palpation: normal PMI Rate: regular rate Rhythm: regular rhythm Heart sounds: S1 normal heart sound present, S2 normal heart sound present, no click, no gallops, no murmurs and no rubs Peripheral pulses: Peripheral pulses 2+ throughout GI Inspection: Yes normal to inspection Palpation (GI): Soft to palpation Auscultation: normal bowel sounds Skin General skin exam: no rashes or lesions noted Neuro General: patient oriented x3 Extrem General: Yes normal to inspection, No no pedal edema and No calf tenderness Psych Appearance: grossly normal Mental Status: mental status grossly normal Speech and movement: Normal speech and movement present Assessment & Plan Assessment & Plan (1) Syncope: Code(s): R55 - Syncope and collapse Category: Medical Plan: 09/14/2024-Holter study showed a baseline normal sinus rhythm with an average heart rate of 74 beats per minute. Patient had reported 2 symptoms of dizziness and presyncopal episode with sinus rhythm. 09/14/2024-echo study showed a normal LV systolic function with the ejection fraction at 66% with no valvular pathology. Currently patient is doing well without any recent syncopal episodes. Given above finding, no further testing indicated at this time. Advised patient on hydrating herself better with a at least 60 oz a day. Advised on regular exercise, orthostatic precautions, and avoiding stimulants. Patient plans on undergoing a wisdom tooth removal and patient can undergo this with a low cardiac risk. Follow up on an as-needed basis. In the interim, patient will call the office with any concerns or change in symptoms. This note was generated using voice recognition software. While every effort has been made to ensure accuracy and proper farm truck driver, there may be occasional errors that could affect the content or meaning of the described symptoms. Coding Level of Care Code Est Pt Level 3 (47528) Complex visit Add On G2211 Diagnoses Syncope R55 Time Spent (min) 28 Comment Time spent in reviewing the chart, test results, assessment, counseling and documentation.
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
--- OUTSIDE RECORDS SUMMARY | 2025-04-13 17:50 | XMS_ITS | Patient Health Record ---
Author Organization [facility] Address [address] [place] [address] Care Team Providers Care Capital Project Engineer Name Role Phone JAE RICHARDSON Unavailable [phone] KEVIN NYE Unavailable [phone] Allergies No Known Allergies Results Component Value Reference Range Flag Notes Ct/GC ILAN, Pharyngeal-[id number] Reviewed date:12/17/2024 08:31:14 AM Interpretation:Negative Performing Lab:[facility], [address], [address], [place], Phone - [phone], Director - [facility] Notes/Report: Clinical Information:SRC: SOURCE NOT INDICATED C. trachomatis, ILAN, Pharyn Negative Negative N. gonorrhoeae, ILAN, Pharyn Negative Negative NuSwab VG+, Alannah [id number]-[id number] 68 Reviewed date:12/16/2024 04:50:37 PM Interpretation:Abnormal Performing Lab:[facility], [address] [facility], [place], Phone - [phone], Director - Duy Notes/Report: and Drug Administration. by [employer]. It has not been cleared or approved by the [employer] and its performance characteristics determined 535690-Boirprl krusei, ILAN 731048-R parapsilosis/tropicalis; 927461-Rvrtalh lusitaniae, ILAN; Test(s) 609760-Nsogbrx albicans, ILAN; 115587-Evfrdch glabrata, ILAN; and Drug Administration. by [employer]. It has not been cleared or approved by the [employer] and its performance characteristics determined Megasphaera 1 [...] Negative HCV Antibody RFX to Quant PC [id number] Reviewed date:12/16/2024 08:46:58 AM Interpretation:Negative Performing Lab:[facility], [address] [place] [address], [address], [place], Phone - [phone], Director - [facility] Notes/Report: Clinical Information:SRC: SOURCE NOT INDICATED Clinical Information:SRC: SOURCE NOT INDICATED HCV Ab Non Reactive Non Reactive Interpretation: Not infected with HCV unless early or acute infection is suspected (which may be delayed in an immunocompromised individual), or other evidence exists to indicate HCV infection. HIV Ab/p24 Ag with Reflex-[id number] Reviewed date:12/16/2024 08:46:40 AM Interpretation:Negative Performing Lab:[facility], [address] [place] [address], [address], [place] [place], Phone - [phone], Director - [facility] Notes/Report: Clinical Information:SRC: SOURCE NOT INDICATED HIV Ab/p24 Ag Screen Non Reactive Non Reactive HIV-1/HIV-2 antibodies and HIV-1 p24 antigen were NOT detected. There is no laboratory evidence of HIV infection. HIV Negative T pallidum Screening Barber -[id number] Reviewed date:12/16/2024 08:46:30 AM Interpretation:Negative Performing Lab:[facility], [address], [address], [place], Phone - [phone], Director - [facility] Notes/Report: Clinical Information:SRC: SOURCE NOT INDICATED T pallidum Antibodies Non Reactive Non Reactive Hepatitis B Surf Ab Quant-00 [id number] Reviewed date:12/16/2024 08:48:40 AM Interpretation:Not Immune Performing Lab:[facility] [place], [address], [address], [address] [place], Phone - [phone], Director - [facility] Notes/Report: Clinical Information:SRC: SOURCE NOT INDICATED Hepatitis B Surf Ab Quant <3.5 Immunity>10 mIU/mL L Status of Immunity Anti-HBs Level Inconsistent with Immunity 0.0 - 10.0 Consistent with Immunity >10.0 HBsAg Screen-[id number] Reviewed date:12/16/2024 08:46:48 AM Interpretation:Negative Performing Lab:[facility] [place], [address], [address], [address] [place], Phone - [phone], Director - [facility] Notes/Report: Clinical Information:SRC: SOURCE NOT INDICATED HBsAg Screen Negative Negative Test, Urine Reviewed date:12/14/2024 05:16:14 PM Interpretation:negative Performing Lab: Notes/Report: negative Test, Urine neg Lot # [id number] Exp. Date 07/26/25 Reason For Referral No [...] 12/14/2024 Encounters Encounter Location Date Provider Diagnosis [facility] [address] [place] [phone] 12/14/2024 JAE RICHARDSON Encounter for other general [...] for screening for other viral diseases Z11.59 [facility] [address] [place], [place] [phone] 12/16/2024 JAE RICHARDSON [facility] [address] [place], [place] [phone] 04/01/2025 KEVIN NYE Encounter for initia l [...] /procedures Communication of test results New Patient: [id number] 30 Minutes 04/01/2025 Encounter for initial prescription [...] /procedures Communication of test results New Patient: 90410 30 Minutes 12/14/2024 Encounter for test, result negative (ICD-10 - Z32.02) Spent ___ minutes doing the following: Chart Prep Obtaining/revie wing history Performing medically necessary exam Counseling/Coor dination of Care Documenting the visit Educating the patient Ordering medication/test /procedures Communication of test results New Patient: 69246 30 Minutes 12/14/2024 Encounter for screening for other infectious and parasitic diseases (ICD-10 - Z11.8) Spent ___ minutes doing the following: Chart Prep Obtaining/revie wing history Performing medically necessary exam Counseling/Coor dination of Care Documenting the visit Educating the patient Ordering medication/test /procedures Communication of test results New Patient: 65415 30 Minutes 12/14/2024 Encounter for initial prescription of contraceptive pills (ICD-10 - Z30.011) Reviewed risks, benefits, advantages, disadvantages, side effects, effectiveness, how to take pill, missed pill protocol, ACHES emergency symptoms. Discussed pill does not protect against STIs.Condoms x 7d. Return in 3 months for pill check/annual and PAP Dispensed Slynd x 1 pack in house, lot number [id number], exp 09/2026, remainder of rx sent to [...] /procedures Communication of test results New Patient: 11089 30 Minutes Plan Of Treatment Next Appt Details Provider Name:KEVIN NYE, 10:45:00 AM, [address] [place] [address], [facility], [place], [place], [phone], Insurance Providers Payer Name Payer Address Payer Phone Subscriber Number Group Number Insured Name Patient Relationship to Insured Coverage Start Date Coverage End Date [facility] [address] [place], [place] [id number] Pamela Gold Self - patient is the insured Medical (General) History Medical History History ICD Code Bipolar Depression/anxiety Trigeminal PVCs, elevated BP , followed by cardiology, next appt end of December 2024 Seizure x 2021 Hep B, not immune BV
== END 2025-04-13 15:24 | disposition home or self-care (01) ==
LOC: HO.HCS 14:56
PROVIDERS: PCP Family Medicine
DX: R55 Syncope and collapse (principal)
CPT/HCPCS: 99213

== ENCOUNTER → 2025-04-13 14:55 | Outpatient (BNVA) | payer OTHER, SELFPAY | PROVIDERS: PCP Family Medicine | DX: R55 Syncope and collapse (principal) | CPT/HCPCS: 99212 ==

== ENCOUNTER 2025-05-09 15:54 | Outpatient (AMB) | payer OTHER, SELFPAY ==
--- OUTSIDE RECORDS SUMMARY | 2025-03-28 11:30 | XMS_ITS ---
Author Organization [facility] Address [address] [place] [address] Care Team Providers Care Distributor Advertising Material Name Role Phone JAE SALINAS [phone] REASON FOR VISIT Annual Exam/Pill check Social History Sex Assigned At : Social History Observation Description Sex Assigned At Female Encounters Encounter Location Date Provider Diagnosis [facility] [address] [place] [address] [address] [address] [place], [place] [phone] 03/28/2025 JAE SALINAS Plan Of Treatment Next Appt Details Provider Name:KEVIN NYE, 10:45:00 AM, [address] [place] [address], [address], [place], [place], [phone], Progress Notes * Pamela GOLD DDOB: [birth year] (24 yo F)Acc No.[id number]:03/28/2025 Progress Notes Patient: Pamela Pisano Provider: Perla Salinas NP :2000 A ge:24 Y S ex:Female Date:03/28/2025 Address:[address] [place] Subjective: * Chief Complaints: * A nnual Exam/Pill check * Electronic signature of PETE SALINAS NP on 05/09/2025 at 05:45 PM EST Sign off status: Pending * Provider: Perla Salinas NP Date: 05/28/2024 Generated for Printi ng/Faxing/eTransmitting on: 1 05:45 PM EST
--- NOTE | 2025-05-09 15:32 | MHC.OFFVISPS ---
Intake Intake Visit Reasons: f/u consultation Job Setter Honing Required: No Allergies No Known Allergies Allergy (Verified 08/17/24 13:19) Medication List - Last Reconciled 05/09/25 by Amelia Milton APRN drospirenone (contraceptive) (Slynd) 1 tab PO DAILY hydroxyzine HCl 10 mg PO BID PRN topiramate (Topamax) 25 mg PO TID HPI- Psychiatric Chief Complaint: f/u consultation HPI Narrative: Pt seen via telehealth for follow up for mood symptoms and anxiety. pts reports she has started back on the topomax and feels less reactive. she reports less impulsivity. Pt reports her mood is more stable. she is less irritable; She is eating better. She did ask her therapist from [facility] in [place] to refer her to a med provider through the clinic and was told it would not be long. Pt denies any dizziness or fainting. She denies etoh use. she denies SI or HI. She denies auditory or visual hallucinations Past Psychiatric History: no IPLOC, no PHPP, one ED 23 hold when in college. Has outpatient therapy off and on since age 10 Subjective Subjective Medication Compliance: Yes Side effects from medications: No Review of Systems Medical Review of Systems: unchanged Mental Status Exam Mental Status Exam Patient Appearance: Well Grooomed and Appropriate Patient Orientation: Person, Place, Time and Situation Level of Consciousness: Awake, Appropriate and Alert Patient Behavior: Appropriate, Cooperative and Good Eye Contact Mood Description: Withdrawn and Constricted Affect Description: Withdrawn and Constricted Patient Cognition Impaired: No Ability to Follow Directions: Good Speech Pattern: Clear and Appropriate Memory Description: Intact Hallucinations: None Delusions: Not Present Thought Process: Intact and Goal Oriented Thought Content: positive for Goal Oriented Judgement: Fair Telehealth Telehealth Telehealth Platform: [place] Location of provider rendering services: practice address Location of patient: address on file Patient Identification confirmed using: Name, : Yes Telehealth method: video Patient verbally consented to treatment: Yes Patient verbally consented to billing insurance company: Yes Patient informed of any privacy concerns related to visit: Yes Minutes spent on Phone/Video with Pt.: 20 Assessment and Plan Assessment & Plan (1) PTSD (post-traumatic stress disorder): Status: Acute Code(s): F43.10 - Post-traumatic stress disorder, unspecified Plan rule out PTSD and Borderline PD from trauma and neglect vs Bipolar II Disorder resume topamax 25mg BID x 3 weeks then increase to TID continue to work on eating 3 small meals a day and supplement with ensure return in 6 weeks follow up with med provider at clinic where therapist works at- [facility] Medications: Refilled topiramate (Topamax) 25 mg PO TID 90 tabs 2RF hydroxyzine HCl 10 mg PO BID PRN 60 tabs 2RF anxiety, sleep Counseling and coordination of Care Pt. Self Management counseling: Maintenance-social rhythm, Med illness tx adherence, Mod caffeine/ETOH intake, Nutrition education and improvement, Sleep hygiene and General coping skills Medication management counseling: Effectiveness, Side effects, Dosing range, Duration, Drug interaction and Adherence Diagnosis and Prognosis Counseling: Accuracy of diagnosis, Prognosis over time, Impact of diagnosis on life functions, Problematic behaviors secondary to diagnosis and Adequacy of current interventions Details: I spent 28 minutes reviewing the record, seeing the patient and documenting in the medical record. Counseling provided to the patient/caregiver as outlined below. Addressed patient/caregiver concerns regarding current medication regime including effective adherence. Addressed patient/caregiver concerns regarding diagnosis and prognosis including accuracy of diagnosis, prognosis over time, impact of diagnosis. Addressed patient/caregiver concerns regarding impact of recent stressors. 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 pt older brother very violent at times; pt father worked 4 jobs and absent frequently; Substance History: etoh 2 x month; THC daily . no other drugs Trauma History: childhood. DCF involvement, early loss of mother Coding Level of Care Code Tele Est Pt Level 4 (79713) Diagnoses PTSD (post-traumatic stress disorder) F43.10
--- OUTSIDE RECORDS SUMMARY | 2025-05-09 17:45 | XMS_ITS | Patient Health Record ---
Author Organization [facility] Address [address] [place] [address] Care Team Providers Care Purification Operator Name Role Phone JAE RICHARDSON Unavailable [phone] POPEYE KEVIN Unavailable [phone] Allergies No Known Allergies Results Component Value Reference Range Flag Notes T pallidum Screening [place] -[id number] Reviewed date:12/16/2024 08:46:30 AM Interpretation:Negative Performing Lab:[facility], [address], [address], [place], Phone - [phone], [facility] Notes/Report: Clinical Information:SRC: SOURCE NOT INDICATED T pallidum Antibodies Non Reactive Non Reactive Ct/GC ILAN, Pharyngeal-[id number] Reviewed date:12/17/2024 08:31:14 AM Interpretation:Negative Performing Lab:[facility], [address], [address], [place], Phone - [phone], [facility] Notes/Report: Clinical Information:SRC: SOURCE NOT INDICATED C. trachomatis, LIAN, Pharyn Negative Negative N. gonorrhoeae, ILAN, Pharyn Negative Negative NuSwab VG+, Alannah [id number]-1800 68 Reviewed date:12/16/2024 04:50:37 PM Interpretation:Abnormal Performing Lab:[facility], [address], [place], Phone - [phone], Director - [facility]uy Notes/Report: and Drug Administration. by [employer]. It has not been cleared or approved by the Food was developed and its performance characteristics determined 655628-Jcoloec krusei, ILAN 869933-U parapsilosis/tropicalis; 191357-Zyspgyv lusitaniae, ILAN; Test(s) 951274-Jikhceh albicans, ILAN; 513438-Genamrz glabrata, ILAN; and Drug Administration. by [employer]. It has not been cleared or approved [...] Negative HCV Antibody RFX to Quant PC [id number] Reviewed date:12/16/2024 08:46:58 AM Interpretation:Negative Performing Lab:[facility], [address], [place], Phone - [phone], Director - [facility] Notes/Report: Clinical Information:SRC: SOURCE NOT INDICATED [...] Performing Lab:[facility], [address], [address], [place], Phone - [phone], Director - [facility] Notes/Report: Clinical Information:SRC: SOURCE NOT INDICATED HIV Ab/p24 Ag Screen Non Reactive Non Reactive HIV-1/HIV-2 antibodies and HIV-1 p24 antigen were NOT detected. There is no laboratory evidence of HIV infection. HIV Negative Hepatitis B Surf Ab Quant-[id number] Reviewed date:12/16/2024 08:48:40 AM Interpretation:Not Immune Performing Lab:[facility] [place], [address], [address], [place], Phone - [phone], Director - [facility] Notes/Report: Clinical Information:SRC: SOURCE NOT INDICATED Hepatitis B Surf Ab Quant <3.5 Immunity>10 mIU/mL L Status of Immunity Anti-HBs Level Inconsistent with Immunity 0.0 - 10.0 Consistent with Immunity >10.0 HBsAg Screen-[id number] Reviewed date:12/16/2024 08:46:48 AM Interpretation:Negative Performing Lab:[facility] [place], [address], [address], [place], Phone - [phone], Director - [facility] Notes/Report: Clinical Information:SRC: SOURCE NOT INDICATED HBsAg Screen Negative Negative Test, Urine Reviewed date:12/14/2024 05:16:14 PM Interpretation:negative Performing Lab: Notes/Report: negative Test, Urine neg Lot # [id number] Exp. Date 07/26/25 Reason For Referral No [...] 12/14/2024 Encounters Encounter Location Date Provider Diagnosis [facility] [address] [place] [phone] 12/14/2024 JAE RICHARDSON Encounter for other general [...] for screening for other viral diseases Z11.59 [facility] [address] [place], [place] [phone] 12/16/2024 JAE RICHARDSON [facility] [address] [place], [place] [phone] 04/01/2025 KEVIN NYE Encounter for initia l [...] /procedures Communication of test results New Patient: 08484 30 Minutes 04/01/2025 Encounter for initial prescription [...] /procedures Communication of test results New Patient: 94350 30 Minutes 12/14/2024 Encounter for test, result negative (ICD-10 - Z32.02) Spent ___ minutes doing the following: Chart Prep Obtaining/revie wing history Performing medically necessary exam Counseling/Coor dination of Care Documenting the visit Educating the patient Ordering medication/test /procedures Communication of test results New Patient: 05161 30 Minutes 12/14/2024 Encounter for screening for other infectious and parasitic diseases (ICD-10 - Z11.8) Spent ___ minutes doing the following: Chart Prep Obtaining/revie wing history Performing medically necessary exam Counseling/Coor dination of Care Documenting the visit Educating the patient Ordering medication/test /procedures Communication of test results New Patient: 39096 30 Minutes 12/14/2024 Encounter for initial prescription of contraceptive pills (ICD-10 - Z30.011) Reviewed risks, benefits, advantages, disadvantages, side effects, effectiveness, how to take pill, missed pill protocol, ACHES emergency symptoms. Discussed pill does not protect against STIs.Condoms x 7d. Return in 3 months for pill check/annual and PAP Dispensed Slynd x 1 pack in house, lot number [id number], exp 09/2026, remainder of rx sent to [...] /procedures Communication of test results New Patient: 75976 30 Minutes Plan Of Treatment Next Appt Details Provider Name:KEVIN NYE, 10:45:00 AM, [address] [place] [address], [facility], [place], [place], [phone], Insurance Providers Payer Name Payer Address Payer Phone Subscriber Number Group Number Insured Name Patient Relationship to Insured Coverage Start Date Coverage End Date [facility] [address] [place], [place] [id number] Pamela Gold Self - patient is the insured Medical (General) History Medical History History ICD Code Bipolar Depression/anxiety Trigeminal PVCs, elevated BP , followed by cardiology, next appt end of December 2024 Seizure x 2021 Hep B, not immune BV
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
== END 2025-05-09 15:55 | disposition home or self-care (01) ==
LOC: HO.HOP 15:54
PROVIDERS: PCP Family Medicine; Visit Provider Clinical Nurse Specialist Psychiatric/Mental Health
DX: F43.10 Post-traumatic stress disorder, unspecified (principal)
CPT/HCPCS: 98006